=== PATIENT | male | born 1965 | race African-American/Black ===

== ENCOUNTER 2020-06-12 18:12 | Inpatient (IN) | payer OTHER ==
--- NOTE | 2020-06-12 22:05 | HP ---
CIWA Score Nausea/Vomitin-No Nausea/No Vomiting Muscle Tremors: 4-Moderate,w/Arms Extend Anxiety: 4-Mod. Anxious/Guarded Agitation: 1-Slight > Activity Paroxysmal Sweats: 4-Forehead w/Sweat Beads Orientation: 1-Uncertain about Date Tacttile Disturbances: 3-Moderate Itch/Numb/Burn (ITCH) Auditory Disturbances: 0-None Visual Disturbances: 0-None Headache: 0-None Present CIWA-Ar Total Score: 17 - Admission Criteria [facility]ASAS Guidelines: Admission for Medically Managed Detox: Requires at least one of the followin. CIWA greater than 12 2. Seizures within the past 24 hours 3. Delirium tremens within the past 24 hours 4. Hallucinations within the past 24 hours 5. Acute intervention needed for co occurring medical disorder 6. Acute intervention needed for co occurring psychiatric disorder 7. Severe withdrawal that cannot be handled at a lower level of care (continued vomiting, continued diarrhea, abnormal vital signs) requiring intravenous medication and/or fluids 8. Patient presents the following: CIWA greater than 12 Admission Criteria Met: Admission criteria met Admitting History and Physical - Smoking History Smoking history: Current every day smoker Have you smoked in the past 12 months: Yes Aproximately how many cigarettes per day: 10 - Alcohol/Substance Use Hx Alcohol Use: Yes Admission ROS BHS - HPI Chief Complaint: C/O ALCOHOL WITHDRAWAL SX'S. SEEKING DETOX Allergies/Adverse Reactions: Allergies Allergy/AdvReac Type Severity Reaction Status Date / Time fish derived Allergy Severe Swelling Verified 05/27/18 13:53 KAREN Inhibitors Allergy Intermediate Swelling Verified 05/27/18 13:25 History of Present Illness: HERE FOR ALCOHOL WITHDRAWAL SX'S. CLIENT IS REFERRED BY OUT REACH. KNOWN TO FACILITY LAST HERE 2017. PRESENTS TODAY WITH C/O WITHDRAWAL SX'S. CLIENT REPORTS DAILY ALCOHOL ABUSE. LAST USE THIS MORNING. REPORTS + EYE HISTOPATH TECH, + BLACKOUTS, DENIES SEIZURES. HE ALSO ABUSES COCAINE, DENIES IVDU, HX/O DRUG OVERDOSE. DENIES ANY SIGNIFICANT PERIOD OF CLEAN TIME IN THE PAST YEAR. LONGEST CLEAN TIME 1 YEAR IN . LIVES ALONE, UNEMPLOYED, DENIES LEGALS. Exam Limitations: Physical Impairment (R EYE BLINDNESS) - Ebola screening Have you traveled outside of the country in the last 21 days: No Have you had contact with anyone from an Ebola affected area: No Have you been sick,other than usual withdrawal symptoms: No Do you have a fever: No - Review of Systems Constitutional: Chills, Loss of Appetite, Malaise, Night Sweats, Changes in sleep EENT: reports: Other (VISION LOSS TO RIGHT EYE) Respiratory: reports: Shortness of Breath (INTERMITTENT 2/2 HX/O ASTHMA) Cardiac: reports: No Symptoms Reported GI: reports: Poor Appetite, Poor Fluid Intake Musculoskeletal: reports: No Symptoms Reported Integumentary: reports: No Symptoms Reported Neuro: reports: No Symptoms reported Endocrine: reports: No Symptoms Reported Hematology: reports: No Symptoms Reported Psychiatric: reports: Orientated x3, Anxious Other Systems: Reviewed and Negative Patient History - Patient Medical History Hx Anemia: No Hx Asthma: Yes Hx Chronic Obstructive Pulmonary Disease (COPD): No Hx Cancer: No Hx Cardiac Disorders: No Hx Congestive Heart Failure: No Hx Hypertension: Yes (LAST TOK MEDS A WEEK AGO. DOES NOT RECALL NAME OF MED) Hx Hypercholesterolemia: No Hx Pacemaker: No HX Cerebrovascular Accident: No Hx Seizures: No Hx Dementia: No Hx Diabetes: No Hx Gastrointestinal Disorders: No Hx Liver Disease: No Hx Genitourinary Disorders: No Hx Sexually Transmitted Disorders: No Hx Renal Disease (ESRD): No Hx Thyroid Disease: No Hx Human Immunodeficiency Virus (HIV): Yes (SINCE 2008, No ANTIRETROVIRAL MEDS) Hx Hepatitis C: No Hx Depression: No Hx Suicide Attempt: No Hx Schizophrenia: No Other Medical History: legally blind in the right eye - Patient Surgical History Past Surgical History: Yes Hx Neurologic Surgery: No Hx Cataract Extraction: No Hx Cardiac Surgery: No Hx Lung Surgery: No Hx Breast Surgery: No Hx Breast Biopsy: No Hx Abdominal Surgery: No Hx Appendectomy: No Hx Cholecystectomy: No Hx Genitourinary Surgery: No Hx Section: No Hx Orthopedic Surgery: No Other Surgical History: right eye FOR GLAUCOMA Anesthesia Reaction: Yes - PPD History Previous Implant?: Yes Documented Results: Negative w/proof Implanted On Prior R Admission?: Yes Date: 05/29/18 Results: 0 mm PPD to be Administered?: Yes - Smoking Cessation Smoking history: Current every day smoker Have you smoked in the past 12 months: Yes Aproximately how many cigarettes per day: 20 Cigars Per Day: 0 Hx Chewing Tobacco Use: No Initiated information on smoking cessation: Yes 'Breaking Loose' booklet given: 06/12/20 - Substance & Tx. History Hx Alcohol Use: Yes Hx Substance Use: Yes Substance Use Type: Alcohol, Cocaine Hx Substance Use Treatment: Yes ([facility]) - Substances abused Alcohol Other (specify): VODKA Substance route: Oral Frequency: Daily Amount used: 1 QUART- 1/2 GALLON Age of first use: 15 Date of last use: 06/12/20 Cocaine Substance route: Smoking Frequency: 3-6 times per week Amount used: 100 DOLLARS Age of first use: 24 Date of last use: 06/12/20 Admission Physical Exam [facility] - Physical General Appearance: Yes: Moderate Distress, Tremorous, Anxious HEENTM: Yes: EOMI, Normocephalic, Normal Voice, EDMUNDO (left eye), Pharynx Normal, Other (TOP DENTURES) Respiratory: Yes: Chest Non-Tender, Lungs Clear, Normal Breath Sounds, No Respiratory Distress, No Accessory Muscle Use Neck: Yes: No masses,lesions,Nodules, Supple, Trachea in good position Cardiology: Yes: Regular Rhythm, Regular Rate, S1, S2 Abdominal: Yes: Non Tender, Soft, Increased Bowel Sounds Genitourinary: Yes: Within Normal Limits Back: Yes: Normal Inspection Musculoskeletal: Yes: full range of Motion, Gait Steady Extremities: Yes: Normal Capillary Refill, Normal Range of Motion, Non-Tender, Tremors Neurological: Yes: Fully Oriented, Alert, Motor Strength 5/5, Depressed Affect Integumentary: Yes: Dry, Warm Lymphatic: Yes: Within Normal Limits - Diagnostic (1) Alcohol dependence with uncomplicated withdrawal Current Visit: Yes Status: Acute (2) Cocaine dependence Current Visit: Yes Status: Acute (3) Drug-induced mood disorder Current Visit: Yes Status: Suspected (4) Nicotine dependence Current Visit: Yes Status: Chronic Qualifiers: Nicotine product type: cigarettes Substance use status: in withdrawal Qualified Code(s): F17.213 - Nicotine dependence, cigarettes, with withdrawal (5) Asthma Current Visit: Yes Status: Chronic Qualifiers: Asthma severity: unspecified severity Asthma persistence: unspecified Asthma complication type: unspecified Qualified Code(s): J45.909 - Unspecified asthma, uncomplicated (6) HTN (hypertension) Current Visit: Yes Status: Chronic Qualifiers: Hypertension type: essential hypertension Qualified Code(s): I10 - Essentia l (primary) hypertension (7) Human immunodeficiency virus infection Current Visit: Yes Status: Chronic (8) Legally blind in right eye, as defined in [place] Current Visit: Yes Status: Chronic (9) Risk for falls Current Visit: Yes Status: Acute Cleared for Admission S - Detox or Rehab [facility] Level of Care: Medically Managed Detox Regimen/Protocol: Librium Claeared for Rehab Admission: No Breathalyzer - Breathalyzer Breathalyzer: 0.50 Urine Drug Screen - Test Device Lot number: [id number] Expiration date: 01/15/22 - Control Is test valid?: Yes - Results Drug screen NEGATIVE: No Urine drug screen results: [facility]-Cocaine Inpatient Rehab Admission - Rehab Decision to Admit Inpatient rehab admission?: No
[2020-06-12] MEDS ORDERED: guaiFENesin 200 MG/10 ML 10 ML UNIT-DOSE CUPS PO PRN (22:14)
[2020-06-12] MEDS ORDERED: MENTHOL/PHENOL 1 EACH UD MM PRN (22:14)
[2020-06-12] MEDS ORDERED: P-EPHED 60MG/TRIPROLIDI 2.5MG TABLET PO PRN (22:14)
[2020-06-12] MEDS ORDERED: ONDANSETRON *ODT* 4 MG TABLET SL PRN (22:14)
[2020-06-12] MEDS ORDERED: MAGNESIUM HYDROX 2400MG/30ML ORAL SUSPENSION 30 ML CUP PO PRN (22:14)
[2020-06-12] MEDS ORDERED: MAG HYDROX/AL HYDROX/SIMETH 30 ML UNIT-DOSE CUP PO PRN (22:14)
[2020-06-12] MEDS ORDERED: MAGNESIUM CITRATE 300 ML BOTTLE PO PRN (22:14)
[2020-06-12] MEDS ORDERED: ACETAMINOPHEN 325 MG TABLET (FP) PO PRN ×2 (22:14)
[2020-06-12] MEDS ORDERED: NICOTINE POLACRILEX 2 MG GUM BUC PRN (22:14)
[2020-06-12] MEDS ORDERED: DICYCLOMINE HCL 10 MG CAPSULE PO PRN (22:14)
[2020-06-12] MEDS ORDERED: BISMUTH SUBSALICYLATE 524 MG/30 ML UD PO PRN (22:14)
[2020-06-12] MEDS ORDERED: chlordiazePOXIDE HCL 25 MG CAPSULE PO PRN (22:14)
[2020-06-12] MEDS ORDERED: IBUPROFEN 400 MG TABLET (FP) PO PRN (22:14)
[2020-06-13] MEDS: chlordiazePOXIDE HCL 25 MG CAPSULE PO SCH ×5 (00:10→22:12)
[2020-06-13] MEDS: hydrOXYzine PAMOATE 25 MG CAPSULE (FP) PO PRN (00:10)
[2020-06-13] MEDS: ALBUTEROL SO4 HFA INHALER IH PRN ×3 (00:13→22:55)
[2020-06-13] MEDS: NICOTINE 21 MG/24 HOURS TOPICAL PATCH TD SCH (11:52)
[2020-06-13] MEDS: PRENATAL VITAMINS W/ FOLIC ACID TABLET (FP) PO SCH (11:53)
[2020-06-13] MEDS: NIFEdipine E.R. 30 MG TABLET PO SCH (11:53)
[2020-06-13 12:27] LABS: HEMATOCRIT 42.1 % (35.4-49); MCH 31.4 pg (25.7-33.7); MCHC 33.3 g/dl (32.0-35.9); MEAN CELL VOLUME 94.3 fl (80-96); MEAN PLT VOLUME 9.9 fl (7.5-11.1); PLATELET COUNT 174 K/MM3 (134-434); RBC 4.47 M/mm3 (4.00-5.60); RDW 13.3 % (11.9-15.9); WHITE BLOOD COUNT 5.4 K/mm3 (4.0-10.0)
[2020-06-13 12:45] LABS: ALBUMIN 3.6 g/dl (3.4-5.0); BILIRUBIN,TOTAL 0.9 mg/dL (0.2-1); BLOOD UREA NITROGEN 17.5 mg/dL (7-18); CREATININE 1.6 mg/dL (0.55-1.3); POTASSIUM 3.5 mmol/L (3.5-5.1); TOT PROT 8.2 g/dl (6.4-8.2)
[2020-06-13] MEDS: METHOCARBAMOL 500 MG TABLET PO PRN (13:17)
--- NOTE | 2020-06-13 13:21 | CONSULT ---
[facility] Psychiatric Consult - Data Date of interview: 06/13/20 Admission source: Self-referred Identifying data: Mr Blum is a 55 years old Black male, father of 3 children, unemployed receiving SSI, living alone seeking detox treatment for alcohol and cocaine Substance Abuse History: Reports history of alcohol and cocaine use. Refer to addiction counselor's summary for further information Medical History: Significant for bronchial asthma, hypertension, HIV since 2008 and eye surgery for glaucoma right eye(legally ayana right eye). Smokes 10-20 cigarettes daily Psychiatric History: Patient was approached by the nursing station for interview. Told bond writer:" I'm not here for psych. I'm here for the drinking"
--- NOTE | 2020-06-13 14:42 | PN ---
S CIWA - CIWA Score Nausea/Vomitin-No Nausea/No Vomiting Muscle Tremors: 3 Anxiety: 3 Agitation: 3 Paroxysmal Sweats: 2 Orientation: 0-Oriented Tacttile Disturbances: 0-None Auditory Disturbances: 0-None Visual Disturbances: 0-None Headache: 0-None Present CIWA-Ar Total Score: 11 S Progress Note (SOAP) Subjective: sweats shakes tired interrupted sleep body aches Objective: 06/13/20 14:41 Vital Signs Temperature 97.1 F L 06/13/20 13:08 Pulse Rate 76 06/13/20 13:08 Respiratory Rate 19 06/13/20 13:08 Blood Pressure 151/101 H 06/13/20 13:08 O2 Sat by Pulse Oximetry (%) 100 06/13/20 13:08 Laboratory Tests 06/13/20 06/13/20 06/13/20 08:40 08:40 08:40 WBC 5.4 RBC 4.47 Hgb 14.0 Hct 42.1 MCV 94.3 MCH 31.4 MCHC 33.3 RDW 13.3 Plt Count 174 MPV 9.9 Sodium 142 Potassium 3.5 Chloride 106 Carbon Dioxide 30 Anion Gap 7 L BUN 17.5 Creatinine 1.6 H Est GFR (CKD-EPI)AfAm 56.17 Est GFR (CKD-EPI)NonAf 48.46 Random Glucose 118 H Calcium 9.0 Total Bilirubin 0.9 AST 24 ALT 24 Alkaline Phosphatase 72 Total Protein 8.2 Albumin 3.6 Syphilis Serology Non-reactive BP for this afternoon is 151/101; clonidine 0.1mg x one dose ordered repeat BP aaox3 lying in bed no acute distress Assessment: 06/13/20 14:43 withdrawals Plan: continue detox
[2020-06-13] MEDS ORDERED: cloNIDine HCL 0.1 MG TABLET PO ONE (15:00)
[2020-06-13] MEDS: MELATONIN 5 MG TABLETS PO SCH (22:12)
[2020-06-13] MEDS: THIAMINE HCL 100 MG TABLET (FP) PO SCH (22:12)
[2020-06-14] MEDS: ALBUTEROL SO4 HFA INHALER IH PRN ×2 (05:28→22:36)
[2020-06-14] MEDS: chlordiazePOXIDE HCL 25 MG CAPSULE PO SCH ×4 (05:28→22:35)
[2020-06-14] MEDS: NIFEdipine E.R. 30 MG TABLET PO SCH (10:41)
[2020-06-14] MEDS: PRENATAL VITAMINS W/ FOLIC ACID TABLET (FP) PO SCH (10:41)
[2020-06-14] MEDS: NICOTINE 21 MG/24 HOURS TOPICAL PATCH TD SCH (10:42)
--- NOTE | 2020-06-14 13:44 | PN ---
[facility] CIWA - CIWA Score Nausea/Vomitin-No Nausea/No Vomiting Muscle Tremors: 2 Anxiety: 3 Agitation: 2 Paroxysmal Sweats: 3 Orientation: 0-Oriented Tacttile Disturbances: 0-None Auditory Disturbances: 0-None Visual Disturbances: 0-None Headache: 0-None Present CIWA-Ar Total Score: 10 S Progress Note (SOAP) Subjective: Complaints of anxiety, tremors, sweats and irritability. Objective: 06/14/20 13:42 Vital Signs 06/14/20 09:36 Temperature 98.0 F Pulse Rate 75 Respiratory 16 Rate Blood Pressure 127/79 O2 Sat by Pulse 93 L Oximetry (%) Laboratory Last Values WBC 5.4 K/mm3 (4.0-10.0) 06/13/20 08:40 RBC 4.47 M/mm3 (4.00-5.60) 06/13/20 08:40 Hgb 14.0 GM/dL (11.7-16.9) 06/13/20 08:40 Hct 42.1 % (35.4-49) 06/13/20 08:40 MCV 94.3 fl (80-96) 06/13/20 08:40 MCH 31.4 pg (25.7-33.7) 06/13/20 08:40 MCHC 33.3 g/dl (32.0-35.9) 06/13/20 08:40 RDW 13.3 % (11.9-15.9) 06/13/20 08:40 Plt Count 174 K/MM3 (134-434) 06/13/20 08:40 MPV 9.9 fl (7.5-11.1) 06/13/20 08:40 Sodium 142 mmol/L (136-145) 06/13/20 08:40 Potassium 3.5 mmol/L (3.5-5.1) 06/13/20 08:40 Chloride 106 mmol/L (98-107) 06/13/20 08:40 Carbon Dioxide 30 mmol/L (21-32) 06/13/20 08:40 Anion Gap 7 MMOL/L (8-16) L 06/13/20 08:40 BUN 17.5 mg/dL (7-18) 06/13/20 08:40 Creatinine 1.6 mg/dL (0.55-1.3) H 06/13/20 08:40 Est GFR (CKD-EPI)AfAm 56.17 06/13/20 08:40 Est GFR (CKD-EPI)NonAf 48.46 06/13/20 08:40 Random Glucose 118 mg/dL (74-106) H 06/13/20 08:40 Calcium 9.0 mg/dL (8.5-10.1) 06/13/20 08:40 Total Bilirubin 0.9 mg/dL (0.2-1) 06/13/20 08:40 AST 24 U/L (15-37) 06/13/20 08:40 ALT 24 U/L (13-61) 06/13/20 08:40 Alkaline Phosphatase 72 U/L (45-117) 06/13/20 08:40 Total Protein 8.2 g/dl (6.4-8.2) 06/13/20 08:40 Albumin 3.6 g/dl (3.4-5.0) 06/13/20 08:40 Syphilis Serology Non-reactive (NONREACTIVE) 06/13/20 08:40 Labs noted with elevated Creatinine Assessment: 06/14/20 13:43 Alert and oriented x 3, in no acute respiratory distress. Full ROM, ambulating in unit without assistance. Skin warm to touch without any lesions. Withdrawal symptoms. Elevated Creatinine. Plan: Continue detox protocol. Repeat BMP for elevated creatinine.
--- NOTE | 2020-06-14 15:00 | EKG ---
Test Reason : Blood Pressure : / mmHG Vent. Rate : 073 BPM Atrial Rate : 073 BPM P-R Int : 156 ms QRS Dur : 080 ms QT Int : 396 ms P-R-T Axes : 064 -18 010 degrees QTc Int : 436 ms NORMAL SINUS RHYTHM NORMAL ECG WHEN COMPARED WITH ECG OF 27-MAY-2018 15:04, NONSPECIFIC T WAVE ABNORMALITY NO LONGER EVIDENT IN LATERAL LEADS Confirmed by Jaydon Morales ([id number]) on 06/14/2020 3:00:32 PM Referred By: ANTOLIN ERNST Confirmed By:Jaydon Morales
[2020-06-14] MEDS: METHOCARBAMOL 500 MG TABLET PO PRN (15:10)
[2020-06-14] MEDS: THIAMINE HCL 100 MG TABLET (FP) PO SCH (22:35)
[2020-06-14] MEDS: MELATONIN 5 MG TABLETS PO SCH (22:35)
[2020-06-15] MEDS ORDERED: chlordiazePOXIDE HCL 10 MG CAPSULE PO PRN
[2020-06-15] MEDS: chlordiazePOXIDE HCL 10 MG CAPSULE PO SCH ×4 (06:01→22:18)
[2020-06-15] MEDS: ALBUTEROL SO4 HFA INHALER IH PRN ×2 (06:04→17:19)
[2020-06-15] MEDS: PRENATAL VITAMINS W/ FOLIC ACID TABLET (FP) PO SCH (09:40)
[2020-06-15] MEDS: NIFEdipine E.R. 30 MG TABLET PO SCH (09:40)
[2020-06-15] MEDS: NICOTINE 21 MG/24 HOURS TOPICAL PATCH TD SCH (10:13)
[2020-06-15 11:12] LABS: BLOOD UREA NITROGEN 13.7 mg/dL (7-18); CALCIUM 8.5 mg/dL (8.5-10.1); CREATININE 1.3 mg/dL (0.55-1.3)
--- NOTE | 2020-06-15 12:43 | PN ---
[facility] CIWA - CIWA Score Nausea/Vomitin-No Nausea/No Vomiting Muscle Tremors: 1-None Visible, but [place] Anxiety: 2 Agitation: 2 Paroxysmal Sweats: 3 Orientation: 0-Oriented Tacttile Disturbances: 0-None Auditory Disturbances: 0-None Visual Disturbances: 0-None Headache: 0-None Present CIWA-Ar Total Score: 8 S Progress Note (SOAP) Subjective: C/O tremors, anxiety, agitation and sweats. Objective: 06/15/20 12:42 Vital Signs 06/15/20 06/15/20 06/15/20 06:00 07:37 09:14 Temperature 97.1 F L 96.8 F L Pulse Rate 66 69 73 Respiratory 20 20 Rate Blood Pressure 151/112 H 143/81 152/91 O2 Sat by Pulse 95 95 Oximetry (%) Laboratory Last Values WBC 5.4 K/mm3 (4.0-10.0) 06/13/20 08:40 RBC 4.47 M/mm3 (4.00-5.60) 06/13/20 08:40 Hgb 14.0 GM/dL (11.7-16.9) 06/13/20 08:40 Hct 42.1 % (35.4-49) 06/13/20 08:40 MCV 94.3 fl (80-96) 06/13/20 08:40 MCH 31.4 pg (25.7-33.7) 06/13/20 08:40 MCHC 33.3 g/dl (32.0-35.9) 06/13/20 08:40 RDW 13.3 % (11.9-15.9) 06/13/20 08:40 Plt Count 174 K/MM3 (134-434) 06/13/20 08:40 MPV 9.9 fl (7.5-11.1) 06/13/20 08:40 Sodium 140 mmol/L (136-145) 06/15/20 07:30 Potassium 4.0 mmol/L (3.5-5.1) 06/15/20 07:30 Chloride 106 mmol/L (98-107) 06/15/20 07:30 Carbon Dioxide 31 mmol/L (21-32) 06/15/20 07:30 Anion Gap 3 MMOL/L (8-16) L 06/15/20 07:30 BUN 13.7 mg/dL (7-18) 06/15/20 07:30 Creatinine 1.3 mg/dL (0.55-1.3) 06/15/20 07:30 Est GFR (CKD-EPI)AfAm 72.20 06/15/20 07:30 Est GFR (CKD-EPI)NonAf 62.29 06/15/20 07:30 Random Glucose 83 mg/dL (74-106) 06/15/20 07:30 Calcium 8.5 mg/dL (8.5-10.1) 06/15/20 07:30 Total Bilirubin 0.9 mg/dL (0.2-1) 06/13/20 08:40 AST 24 U/L (15-37) 06/13/20 08:40 ALT 24 U/L (13-61) 06/13/20 08:40 Alkaline Phosphatase 72 U/L (45-117) 06/13/20 08:40 Total Protein 8.2 g/dl (6.4-8.2) 06/13/20 08:40 Albumin 3.6 g/dl (3.4-5.0) 06/13/20 08:40 Syphilis Serology Non-reactive (NONREACTIVE) 06/13/20 08:40 COVID-19 ([facility]) Not detected (Not Detected) 06/12/20 11:00 Labs noted. Assessment: 06/15/20 12:42 Alert and oriented x 3, in no acute respiratory distress. Full ROM, ambulatory in unit without any assistance. Skin warm to touch without any lesions. Withdrawal symptoms. Plan: Continue detox protocol.
[2020-06-15] MEDS: BUDESONIDE/FORMETEROL FUMARATE 160/4.5 mcg INHALER IH SCH (22:18)
[2020-06-15] MEDS: MELATONIN 5 MG TABLETS PO SCH (22:18)
[2020-06-15] MEDS: THIAMINE HCL 100 MG TABLET (FP) PO SCH (22:18)
[2020-06-16] MEDS: chlordiazePOXIDE HCL 10 MG CAPSULE PO SCH ×2 (05:46→17:54)
--- NOTE | 2020-06-16 09:50 | PN ---
[facility] CIWA - CIWA Score Nausea/Vomitin-No Nausea/No Vomiting Muscle Tremors: None Anxiety: 2 Agitation: 0-Normal Activity Paroxysmal Sweats: 2 Orientation: 0-Oriented Tacttile Disturbances: 0-None Auditory Disturbances: 0-None Visual Disturbances: 0-None Headache: 0-None Present CIWA-Ar Total Score: 4 BHS Progress Note (SOAP) Subjective: c/o mild withdrawal symptoms. Objective: 06/16/20 09:48 Vital Signs 06/16/20 06/16/20 05:49 08:15 Temperature 97.3 F L 97.5 F L Pulse Rate 84 75 Respiratory 18 16 Rate Blood Pressure 134/83 141/80 O2 Sat by Pulse 97 Oximetry (%) Laboratory Last Values WBC 5.4 K/mm3 (4.0-10.0) 06/13/20 08:40 RBC 4.47 M/mm3 (4.00-5.60) 06/13/20 08:40 Hgb 14.0 GM/dL (11.7-16.9) 06/13/20 08:40 Hct 42.1 % (35.4-49) 06/13/20 08:40 MCV 94.3 fl (80-96) 06/13/20 08:40 MCH 31.4 pg (25.7-33.7) 06/13/20 08:40 MCHC 33.3 g/dl (32.0-35.9) 06/13/20 08:40 RDW 13.3 % (11.9-15.9) 06/13/20 08:40 Plt Count 174 K/MM3 (134-434) 06/13/20 08:40 MPV 9.9 fl (7.5-11.1) 06/13/20 08:40 Sodium 140 mmol/L (136-145) 06/15/20 07:30 Potassium 4.0 mmol/L (3.5-5.1) 06/15/20 07:30 Chloride 106 mmol/L (98-107) 06/15/20 07:30 Carbon Dioxide 31 mmol/L (21-32) 06/15/20 07:30 Anion Gap 3 MMOL/L (8-16) L 06/15/20 07:30 BUN 13.7 mg/dL (7-18) 09/06/20 07:30 Creatinine 1.3 mg/dL (0.55-1.3) 06/15/20 07:30 Est GFR (CKD-EPI)AfAm 72.20 06/15/20 07:30 Est GFR (CKD-EPI)NonAf 62.29 06/15/20 07:30 Random Glucose 83 mg/dL (74-106) 06/15/20 07:30 Calcium 8.5 mg/dL (8.5-10.1) 06/15/20 07:30 Total Bilirubin 0.9 mg/dL (0.2-1) 06/13/20 08:40 AST 24 U/L (15-37) 06/13/20 08:40 ALT 24 U/L (13-61) 06/13/20 08:40 Alkaline Phosphatase 72 U/L (45-117) 06/13/20 08:40 Total Protein 8.2 g/dl (6.4-8.2) 06/13/20 08:40 Albumin 3.6 g/dl (3.4-5.0) 06/13/20 08:40 Syphilis Serology Non-reactive (NONREACTIVE) 06/13/20 08:40 COVID-19 ([facility]) Not detected (Not Detected) 06/12/20 11:00 Labs noted. Assessment: 06/16/20 09:48 AOX3, in no acute respiratory distress. Full ROM, ambulating in the unit. Mild Withdrawal symptoms. For d/c tomorrow. Plan: continue detox. D/C in AM.
[2020-06-16] MEDS: PRENATAL VITAMINS W/ FOLIC ACID TABLET (FP) PO SCH (11:21)
[2020-06-16] MEDS: NICOTINE 21 MG/24 HOURS TOPICAL PATCH TD SCH (11:21)
[2020-06-16] MEDS: NIFEdipine E.R. 30 MG TABLET PO SCH (11:21)
[2020-06-16] MEDS: BUDESONIDE/FORMETEROL FUMARATE 160/4.5 mcg INHALER IH SCH ×2 (11:23→21:39)
[2020-06-16] MEDS: ALBUTEROL SO4 HFA INHALER IH PRN (11:25)
[2020-06-16] MEDS: METHOCARBAMOL 500 MG TABLET PO PRN (21:36)
[2020-06-16] MEDS: THIAMINE HCL 100 MG TABLET (FP) PO SCH (21:37)
[2020-06-16] MEDS: hydrOXYzine PAMOATE 25 MG CAPSULE (FP) PO PRN (21:37)
[2020-06-16] MEDS: MELATONIN 5 MG TABLETS PO SCH (21:37)
[2020-06-17] MEDS ORDERED: chlordiazePOXIDE HCL 10 MG CAPSULE PO ONE (05:00)
[2020-06-17 10:00] VITALS: BP 149/109; PULSE 137; TEMP 96.9
--- NOTE | 2020-06-17 11:08 | DS ---
[facility] Detox Discharge Summary Admission Date: 06/12/20 Discharge Date: 06/17/20 - History Present History: Alcohol Dependence, Cocaine Dependence - Physical Exam Results Vital Signs: Vital Signs Temperature 96.9 F L 06/17/20 08:54 Pulse Rate 137 H 06/17/20 08:54 Respiratory Rate 84 H 06/17/20 08:54 Blood Pressure 149/109 H 06/17/20 08:54 O2 Sat by Pulse Oximetry (%) 96 06/17/20 08:54 Pertinent Admission Physical Exam Findings: Vital Signs Temperature 96.9 F L 06/17/20 08:54 Pulse Rate 137 H 06/17/20 08:54 Respiratory Rate 84 H 06/17/20 08:54 Blood Pressure 149/109 H 06/17/20 08:54 O2 Sat by Pulse Oximetry (%) 96 06/17/20 08:54 Laboratory Tests 06/12/20 06/13/20 06/13/20 11:00 08:40 08:40 WBC 5.4 RBC 4.47 Hgb 14.0 Hct 42.1 MCV 94.3 MCH 31.4 MCHC 33.3 RDW 13.3 Plt Count 174 MPV 9.9 Sodium Potassium Chloride Carbon Dioxide Anion Gap BUN Creatinine Est GFR (CKD-EPI)AfAm Est GFR (CKD-EPI)NonAf Random Glucose Calcium Total Bilirubin AST ALT Alkaline Phosphatase Total Protein Albumin Syphilis Serology Non-reactive COVID-19 ([facility]) Not detected 06/13/20 06/15/20 08:40 07:30 WBC RBC Hgb Hct MCV MCH MCHC RDW Plt Count MPV Sodium 142 140 Potassium 3.5 4.0 Chloride 106 106 Carbon Dioxide 30 31 Anion Gap 7 L 3 L BUN 17.5 13.7 Creatinine 1.6 H 1.3 Est GFR (CKD-EPI)AfAm 56.17 72.20 Est GFR (CKD-EPI)NonAf 48.46 62.29 Random Glucose 118 H 83 Calcium 9.0 8.5 Total Bilirubin 0.9 AST 24 ALT 24 Alkaline Phosphatase 72 Total Protein 8.2 Albumin 3.6 Syphilis Serology COVID-19 ([facility]) aaox3 ambulating no acute distress lungs CTA - Treatment Hospital Course: Detox Protocol Followed, Detoxed Safely, Responded well, Discharged Condition Good, Rehab Referral Accepted - Medication Discharge Medications: Ambulatory Orders Nifedipine ER [Procardia XL -] 30 mg PO DAILY 05/27/18 Quetiapine Fumarate [Seroquel] 100 tab PO HS 05/27/18 - Diagnosis (1) Acute prerenal azotemia Status: Acute (2) Alcohol dependence with uncomplicated withdrawal Status: Chronic (3) Cocaine dependence Status: Chronic (4) Risk for falls Status: Acute (5) Weight decreased Status: Acute (6) Asthma Status: Chronic Qualifiers: Asthma severity: unspecified severity Asthma persistence: unspecified Asthma complication type: unspecified Qualified Code(s): J45.909 - Unspecified asthma, uncomplicated (7) HTN (hypertension) Status: Chronic Qualifiers: Hypertension type: essential hypertension Qualified Code(s): I10 - Essential (primary) hypertension (8) Human immunodeficiency virus infection Status: Chronic (9) Legally blind in right eye, as defined in [place] Status: Chronic (10) Nicotine dependence Status: Chronic Qualifiers: Nicotine product type: cigarettes Substance use status: in withdrawal Qualified Code(s): F17.213 - Nicotine dependence, cigarettes, with withdrawal (11) Drug-induced mood disorder Status: Suspected - AMA Did Patient Leave Against Medical Advice: No
== END 2020-06-17 10:23 | disposition home or self-care (01) | DRG 774 ==
LOC: YASAS 18:12 → Y6N 22:03
PROVIDERS: ADMIT Allergy & Immunology; ATTEND Allergy & Immunology
PROC: HZ2ZZZZ Detoxification Services for Substance Abuse Treatment (ICD-10-PCS; principal; 2020-06-12)
DX: F10.230 Alcohol dependence with withdrawal, uncomplicated (principal); F14.20 Cocaine dependence, uncomplicated; F17.210 Nicotine dependence, cigarettes, uncomplicated; F19.24 Other psychoactive substance dependence with psychoactive substance-induced mood disorder; Z21 Asymptomatic human immunodeficiency virus [HIV] infection status; I10 Essential (primary) hypertension; J45.909 Unspecified asthma, uncomplicated; H54.61 Unqualified visual loss, right eye, normal vision left eye; R79.89 Other specified abnormal findings of blood chemistry; R63.4 Abnormal weight loss; Z88.8 Allergy status to other drugs, medicaments and biological substances; Z91.013 Allergy to seafood
CPT/HCPCS: 36415; 80048; 80053; 85027; 86780; 93005; 93010; J0735; U0003

== ENCOUNTER 2020-07-17 14:05 | Inpatient (IN) | payer OTHER ==
--- OUTSIDE RECORDS SUMMARY | 2020-07-17 15:19 | XMS ---
:1965 Author Organization [facility] Support Name Relationship Address Phone UE Unavailable Unavailable Unavailable JULIÁN KENYON [address] [place] [address] JULIÁN Kenyon [address] [phone] [place] [address] Re-disclosure Warning The records that you are about to access may contain information from federally- assisted alcohol or drug abuse programs. If such information is present, then the following federally mandated warning applies: This information has been disclosed to you from records protected by federal confidentiality rules (42 CFR part 2). The federal rules prohibit you from making any further disclosure of this information unless further disclosure is expressly permitted by the written consent of the person to whom it pertains or as otherwise permitted by 42 CFR part 2. A general authorization for the release of medical or other information is NOT sufficient for this purpose. The Federal rules restrict any use of the information to criminally investigate or prosecute any alcohol or drug abuse patient.The records that you are about to access may contain highly sensitive health information, the redisclosure of which is protected by Article 27-F of the [facility] Public Health law. If you continue you may haveaccess to information: Regarding HIV / AIDS; Provided by facilities licensed or operated by the [facility] Office of Mental Health; or Provided by the [facility] Office for People With Developmental Disabilities. If such information is present, then the following [facility] mandated warning applies: This information has been disclosed to you from confidential records which are protected by state law. State law prohibits you from making any further disclosure of this information without the specific written consent of the person to whom it pertains, or as otherwise permitted by law. Any unauthorized further disclosure in violation of state law may result in a fine or senior care sentence or both. A general authorization for the release of medical or other information is NOT sufficient authorization for further disclosure. Encounters Encounter Providers Location Date Indications Data Source(s ) Outpatient [facility] 08/17/2019 eCW3 ([facility] 12:00:00 AM [facility] - [facility]) 08/17/2019 12:00:00 AM EST Outpatient [facility] 08/14/2019 eCW3 ([facility] 12:00:00 [facility] - [facility]) 08/14/2019 12:00:00 AM EST (CM-F/U) Case [facility] 08/06/2019 eCW3 ([facility] 12[facility]00:00 [facility] - [facility]) 08/06/2019 12:00:00 AM EDT (CM-F/U) Case [facility] 07/11/2019 eCW3 ([facility] 12:00:00 [facility] - Care) 07/11/2019 12:00:00 AM EDT Outpatient [facility] 07/05/2019 eCW3 ([facility] 12:00:00 AM [facility] - [facility]) 07/05/2019 12:00:00 AM EDT (CM-F/U) Case [facility] 07/05/2019 eCW3 ([facility] 12:00:00 [facility] - Care) 07/05/2019 12:00:00 AM EDT Outpatient [facility] 07/03/2019 eCW3 ([facility] 12:00:00 AM [facility] - [facility]) 07/03/2019 12:00:00 AM EDT (CM-F/U) Case [facility] 07/03/2019 eCW3 ([facility] 12:00:00 [facility] - Care) 07/03/2019 12:00:00 AM EDT Outpatient [facility] 06/05/2019 eCW3 ([facility] 12:00:00 AM [facility] - [facility]) 06/05/2019 12:00:00 AM EDT (CM-F/U) Case [facility] 05/31/2019 eCW3 ([facility] 12:00:00 [facility] - [facility]) 05/31/2019 12:00:00 AM EDT (CM-F/U) Case [facility] 05/22/2019 eCW3 ([facility] A28 12:00:00 AM [facility] EDT [facility]) 05/22/2019 12:00:00 AM EDT (CM-F/U) Case [facility] 05/22/2019 eCW3 ([facility] A28 12:00:00 AM [facility] EDT [facility]) 05/22/2019 12:00:00 AM EDT Medications Medication Brand Start Product Dose Route Administrative Pharmacy [facility] Indications Reaction Description Data Name Date Form Instructions Instructions Source(s) Famotidine Famoti .0 active Famotidi ne eCW3 20 MG Oral dine 2020 {tabl 20 MG ([facility] Tablet 20 MG 12:00: et[facility]at [facility] 00 AM _[facility] EDT ime_a Care) s_nee ded} Famotidine Famoti .0 active Famotidi ne eCW3 20 MG Oral dine 2020 {tabl 20 MG ([facility] Tablet 20 MG 12:00: [facility] s_nee ded} Famotidine Famoti .0 active Famotidi ne eCW3 20 MG Oral dine 2020 {tabl 20 MG ([facility] Tablet 20 MG 12:00: [facility] Care) s_nee ded} Famotidine Famoti .0 active Famotidi ne eCW3 20 MG Oral dine 2020 {tabl 20 MG ([facility] Tablet 20 MG 12:00: [facility]at [facility] AM [facility]) s_nee ded} Famotidine Famoti .0 active Famotidi ne eCW3 20 MG Oral dine 2020 {tabl 20 MG ([facility] Tablet 20 MG 12:00: [facility]at [facility] 00 AM [facility] Care) s_nee ded} Famotidine Famoti .0 active Famotidi ne eCW3 20 MG Oral dine 2020 {tabl 20 MG ([facility] Tablet 20 MG 12:00: et_at [facility] 00 AM [facility] EDT ime[facility]a Care) s_nee ded} Famotidine Famoti .0 active Famotidi ne eCW3 20 MG Oral dine 2020 {tabl 20 MG ([facility] Tablet 20 MG 12:00: et_at [facility] 00 AM [facility] EDT ime[facility]a Care) s_nee ded} Famotidine Famoti .0 active Famotidi ne eCW3 20 MG Oral dine 2019 {tabl 20 MG ([facility] Tablet 20 MG 12:00: et_at [facility] 00 AM [facility] EDT ime_a Care) s_nee ded} Zolpidem Ambien .0 active Ambien 10 MG eCW3 tartrate 10 10 MG 2019 {tabl ([facility] Oral 12:00: et[facility]at [facility] Tablet 00 AM [facility] [Ambien[facility] EDT ime_a Care) Ambien 10 s_nee MG ded} Zolpidem Ambien .0 active Ambien 10 MG eCW3 tartrate 10 10 MG 2019 {tabl ([facility] Oral 12:00: et_at [facility] Tablet 00 AM [facility] [Ambien] EDT ime_a Care) Ambien 10 s_nee MG ded} Zolpidem Ambien .0 active Ambien 10 MG eCW3 tartrate 10 10 MG 2019 {tabl ([facility] Oral 12:00: et[facility]at [facility] Tablet 00 AM [facility] [Ambien] EDT ime_a Care) Ambien 10 s_nee MG ded} Zolpidem Ambien .0 active Ambien 10 MG eCW3 tartrate 10 10 MG 2019 {tabl ([facility] Oral 12:00: et[facility]at [facility] Tablet 00 AM [facility] [Ambien[facility] EDT ime_a Care) Ambien 10 s_nee MG ded} Zolpidem Ambien .0 active Ambien 10 MG eCW3 tartrate 10 10 MG 2020 {tabl ([facility] Oral 12:00: et[facility]at [facility] Tablet 00 AM [facility] [Ambien] EDT ime_a Care) Ambien 10 s_nee MG ded} Zolpidem Ambien .0 active Ambien 10 MG eCW3 tartrate 10 10 MG 2020 {tabl ([facility] Oral 12:00: et[facility]at [facility] Tablet 00 AM [facility] [Ambien] EDT ime_a Care) Ambien 10 s_nee MG ded} Losartan [facility] .0 active Losartan e CW3 Potassium an 2020 {tabl Potassium ([facility] 100 MG Oral Potass 12:00: et} 100 MG Ri garima Tablet ium 00 AM Health 100 MG EST Care) Losartan [facility] .0 active Losartan e CW3 Potassium an 2020 {tabl Potassium ([facility] 100 MG Oral Potass 12:00: et} 100 MG Ri garima Tablet ium 00 AM Health 100 MG EST Care) Losartan [facility] .0 active Losartan e CW3 Potassium an 2020 {tabl Potassium ([facility] 100 MG Oral Potass 12:00: et} 100 MG Ri garima Tablet ium 00 AM Health 100 MG EST Care) Losartan [facility] .0 active Losartan e CW3 Potassium an 2020 {tabl Potassium ([facility] 100 MG Oral Potass 12:00: et} 100 MG Ri garima Tablet ium 00 AM Health 100 MG EST Care) Losartan [facility] .0 active Losartan e CW3 Potassium an 2020 {tabl Potassium ([facility] 100 MG Oral Potass 12:00: et} 100 MG Ri garima Tablet ium 00 AM Health 100 MG EST Care) Losartan [facility] .0 active Losartan e CW3 Potassium an 2020 {tabl Potassium ([facility] 100 MG Oral Potass 12:00: et} 100 MG Ri garima Tablet ium 00 AM Health 100 MG EST Care) Losartan [facility] .0 active Losartan e CW3 Potassium an 2020 {tabl Potassium ([facility] 100 MG Oral Potass 12:00: et} 100 MG Ri garima Tablet ium 00 AM Health 100 MG EST Care) Losartan [facility] .0 active Losartan e CW3 Potassium an 2020 {tabl Potassium ([facility] 100 MG Oral Potass 12:00: et} 100 MG Ri garima Tablet ium 00 AM Health 100 MG EST Care) Losartan [facility] .0 active Losartan e CW3 Potassium an 2020 {tabl Potassium ([facility] 100 MG Oral Potass 12:00: et} 100 MG Ri garima Tablet ium 00 AM Health 100 MG EST Care) Losartan [facility] .0 active Losartan e CW3 Potassium an 2020 {tabl Potassium ([facility] 100 MG Oral Potass 12:00: et} 100 MG Ri garima Tablet ium 00 AM Health 100 MG EST Care) Losartan [facility] .0 active Losartan e CW3 Potassium an 2020 {tabl Potassium ([facility] 100 MG Oral Potass 12:00: et} 100 MG Ri garima Tablet ium 00 AM Health 100 MG EST Care) Losartan [facility] .0 active Losartan e CW3 Potassium an 2020 {tabl Potassium ([facility] 100 MG Oral Potass 12:00: et} 100 MG Ri garima Tablet ium 00 AM Health 100 MG EST Care) Losartan [facility] .0 active Losartan e CW3 Potassium an 2020 {tabl Potassium ([facility] 100 MG Oral Potass 12:00: et} 100 MG Ri garima Tablet ium 00 AM Health 100 MG EST Care) Losartan [facility] .0 active Losartan e CW3 Potassium an 2020 {tabl Potassium ([facility] 100 MG Oral Potass 12:00: et} 100 MG Ri garima Tablet ium 00 AM Health 100 MG EST Care) Losartan [facility] .0 active Losartan e CW3 Potassium an 2020 {tabl Potassium ([facility] 100 MG Oral Potass 12:00: et} 100 MG Ri garima Tablet ium 00 AM Health 100 MG EST Care) Losartan [facility] .0 active Losartan e CW3 Potassium an 2020 {tabl Potassium ([facility] 100 MG Oral Potass 12:00: et} 100 MG Ri garima Tablet ium 00 AM Health 100 MG EST Care) Losartan [facility] .0 active Losartan e CW3 Potassium an 2020 {tabl Potassium ([facility] 100 MG Oral Potass 12:00: et} 100 MG Ri garima Tablet ium 00 AM Health 100 MG EST Care) Losartan [facility] .0 active Losartan e CW3 Potassium an 2020 {tabl Potassium ([facility] 100 MG Oral Potass 12:00: et} 100 MG Ri garima Tablet ium 00 AM Health 100 MG EST Care) Losartan [facility] .0 active Losartan e CW3 Potassium an 2020 {tabl Potassium ([facility] 100 MG Oral Potass 12:00: et} 100 MG Ri garima Tablet ium 00 AM Health 100 MG EST Care) Losartan [facility] .0 active Losartan e CW3 Potassium an 2020 {tabl Potassium ([facility] 100 MG Oral Potass 12:00: et} 100 MG Ri garima Tablet ium 00 AM Health 100 MG EST Care) Losartan [facility] .0 active Losartan e CW3 Potassium an 2020 {tabl Potassium ([facility] 100 MG Oral Potass 12:00: et} 100 MG Ri garima Tablet ium 00 AM Health 100 MG EST Care) Losartan [facility] .0 active Losartan e CW3 Potassium an 2020 {tabl Potassium ([facility] 100 MG Oral Potass 12:00: et} 100 MG Ri garima Tablet ium 00 AM Health 100 MG EST Care) Losartan [facility] .0 active Losartan e CW3 Potassium an 2020 {tabl Potassium ([facility] 100 MG Oral Potass 12:00: et} 100 MG Ri garima Tablet ium 00 AM Health 100 MG EST Care) Losartan [facility] .0 active Losartan e CW3 Potassium an 2020 {tabl Potassium ([facility] 100 MG Oral Potass 12:00: et} 100 MG Ri garima Tablet ium 00 AM Health 100 MG EST Care) Losartan [facility] .0 active Losartan e CW3 Potassium an 2020 {tabl Potassium ([facility] 100 MG Oral Potass 12:00: et} 100 MG Ri garima Tablet ium 00 AM Health 100 MG EST Care) Hydrochloro Hydroc 11/08/ active Hydroch lorot eCW3 thiazide hlorot 2020 hiazide 12.5 ( [place] 12.5 MG hiazid 12:00: MG [facility] Oral e 12.5 00 AM Health Capsule MG EST Care) Hydrochloro Hydroc 11/08/ active Hydroch lorot eCW3 thiazide hlorot 2020 hiazide 12.5 ( [place] 12.5 MG hiazid 12:00: MG [facility] Oral e 12.5 00 AM Health Capsule MG EST Care) Hydrochloro Hydroc 11/08/ active Hydroch lorot eCW3 thiazide hlorot 2020 hiazide 12.5 ( [place] 12.5 MG hiazid 12:00: MG [facility] Oral e 12.5 00 AM Health Capsule MG EST Care) Hydrochloro Hydroc 11/08/ active Hydroch lorot eCW3 thiazide hlorot 2020 hiazide 12.5 ( [place] 12.5 MG hiazid 12:00: MG [facility] Oral e 12.5 00 AM Health Capsule MG EST Care) Hydrochloro Hydroc 11/08/ active Hydroch lorot eCW3 thiazide hlorot 2020 hiazide 12.5 ( [place] 12.5 MG hiazid 12:00: MG [facility] Oral e 12.5 00 AM Health Capsule MG EST Care) Hydrochloro Hydroc 11/08/ active Hydroch lorot eCW3 thiazide hlorot 2020 hiazide 12.5 ( [place] 12.5 MG hiazid 12:00: MG [facility] Oral e 12.5 00 AM Health Capsule MG EST Care) Hydrochloro Hydroc 11/08/ active Hydroch lorot eCW3 thiazide hlorot 2020 hiazide 12.5 ( [place] 12.5 MG hiazid 12:00: MG [facility] Oral e 12.5 00 AM Health Capsule MG EST Care) Hydrochloro Hydroc 11/08/ active Hydroch lorot eCW3 thiazide hlorot 2020 hiazide 12.5 ( [place] 12.5 MG hiazid 12:00: MG [facility] Oral e 12.5 00 AM Health Capsule MG EST Care) Hydrochloro Hydroc 11/08/ active Hydroch lorot eCW3 thiazide hlorot 2020 hiazide 12.5 ( [place] 12.5 MG hiazid 12:00: MG [facility] Oral e 12.5 00 AM Health Capsule MG EST Care) Hydrochloro Hydroc 11/08/ active Hydroch lorot eCW3 thiazide hlorot 2020 hiazide 12.5 ( [place] 12.5 MG hiazid 12:00: MG [facility] Oral e 12.5 00 AM Health Capsule MG EST Care) Hydrochloro Hydroc 11/08/ active Hydroch lorot eCW3 thiazide hlorot 2020 hiazide 12.5 ( [place] 12.5 MG hiazid 12:00: MG [facility] Oral e 12.5 00 AM Health Capsule MG EST Care) Hydrochloro Hydroc 11/08/ active Hydroch lorot eCW3 thiazide hlorot 2020 hiazide 12.5 ( [place] 12.5 MG hiazid 12:00: MG [facility] Oral e 12.5 00 AM Health Capsule MG EST Care) Hydrochloro Hydroc 11/08/ active Hydroch lorot eCW3 thiazide hlorot 2020 hiazide 12.5 ( [place] 12.5 MG hiazid 12:00: MG [facility] Oral e 12.5 00 AM Health Capsule MG EST Care) Hydrochloro Hydroc 11/08/ active Hydroch lorot eCW3 thiazide hlorot 2020 hiazide 12.5 ( [place] 12.5 MG hiazid 12:00: MG [facility] Oral e 12.5 00 AM Health Capsule MG EST Care) Hydrochloro Hydroc 11/08/ active Hydroch lorot eCW3 thiazide hlorot 2020 hiazide 12.5 ( [place] 12.5 MG hiazid 12:00: MG [facility] Oral e 12.5 00 AM Health Capsule MG EST Care) Hydrochloro Hydroc 11/08/ active Hydroch lorot eCW3 thiazide hlorot 2020 hiazide 12.5 ( [place] 12.5 MG hiazid 12:00: MG [facility] Oral e 12.5 00 AM Health Capsule MG EST Care) Hydrochloro Hydroc 11/08/ active Hydroch lorot eCW3 thiazide hlorot 2020 hiazide 12.5 ( [place] 12.5 MG hiazid 12:00: MG [facility] Oral e 12.5 00 AM Health Capsule MG EST Care) Hydrochloro Hydroc 11/08/ active Hydroch lorot eCW3 thiazide hlorot 2020 hiazide 12.5 ( [place] 12.5 MG hiazid 12:00: MG [facility] Oral e 12.5 00 AM Health Capsule MG EST Care) Hydrochloro Hydroc 11/08/ active Hydroch lorot eCW3 thiazide hlorot 2020 hiazide 12.5 ( [place] 12.5 MG hiazid 12:00: MG [facility] Oral e 12.5 00 AM Health Capsule MG EST Care) Hydrochloro Hydroc 11/08/ active Hydroch lorot eCW3 thiazide hlorot 2020 hiazide 12.5 ( [place] 12.5 MG hiazid 12:00: MG [facility] Oral e 12.5 00 AM Health Capsule MG EST Care) Hydrochloro Hydroc 11/08/ active Hydroch lorot eCW3 thiazide hlorot 2020 hiazide 12.5 ( [place] 12.5 MG hiazid 12:00: MG [facility] Oral e 12.5 00 AM Health Capsule MG EST Care) Hydrochloro Hydroc 11/08/ active Hydroch lorot eCW3 thiazide hlorot 2020 hiazide 12.5 ( [place] 12.5 MG hiazid 12:00: MG [facility] Oral e 12.5 00 AM Health Capsule MG EST Care) Hydrochloro Hydroc 11/08/ active Hydroch lorot eCW3 thiazide hlorot 2019 hiazide 12.5 ( [place] 12.5 MG hiazid 12:00: MG [facility] Oral e 12.5 00 AM Health Capsule MG EST Care) Hydrochloro Hydroc 11/08/ active Hydroch lorot eCW3 thiazide hlorot 2019 hiazide 12.5 ( [place] 12.5 MG hiazid 12:00: MG [place] Oral e 12.5 00 AM Health Capsule MG EST Care) Hydrochloro Hydroc 11/08/ active Hydroch lorot eCW3 thiazide hlorot 2019 hiazide 12.5 ( [place] 12.5 MG hiazid 12:00: MG [facility] Oral e 12.5 00 AM Health Capsule MG EST Care) Calcium Oyster .0 active Oyster Mary l eCW3 Carbonate Shell 2019 {tabl Calcium/D (Hu dson 1250 MG / Calciu 12:00: et} 500-400 Felipa er Cholecalcif m/D 00 AM MG-UNIT [facility] 0.01 500-40 EST Care) MG Oral 0 Tablet MG-UNI Oyster T Shell Calcium/D 500-400 MG-UNIT Calcium Oyster .0 active Oyster Mary l eCW3 Carbonate Shell 2019 {tabl Calcium/D (Hu dson 1250 MG / Calciu 12:00: et} 500-400 Felipa er Cholecalcif m/D 00 AM MG-UNIT [facility] 0.01 500-40 EST Care) MG Oral 0 Tablet MG-UNI Oyster T Shell Calcium/D 500-400 MG-UNIT Oyster Oyster .0 active Oyster Shell eCW3 Shell Shell 2019 {tabl Calcium/D ([facility] Calcium/D Calciu 12:00: et} 500-400 Felipa er 500-400 m/D 00 AM MG-UNIT Health MG-UNIT 500-40 EST Care) 0 MG-UNI T Calcium Oyster .0 active Oyster Mary l eCW3 Carbonate Shell 2019 {tabl Calcium/D (Hu dson 1250 MG / Calciu 12:00: et} 500-400 Fel[place] er Cholecalcif m/D 00 AM MG-UNIT [facility] 0.01 500-40 EST Care) MG Oral 0 Tablet MG-UNI Oyster T Shell Calcium/D 500-400 MG-UNIT Calcium Oyster .0 active Oyster Mary l eCW3 Carbonate Shell 2019 {tabl Calcium/D (Hu dson 1250 MG / Calciu 12:00: et} 500-400 Fel[place] er Cholecalcif m/D 00 AM MG-UNIT [facility] 0.01 500-40 EST Care) MG Oral 0 Tablet MG-UNI Oyster T Shell Calcium/D 500-400 MG-UNIT Calcium Oyster .0 active Oyster Mary l eCW3 Carbonate Shell 2019 {tabl Calcium/D (Hu dson 1250 MG / Calciu 12:00: et} 500-400 [place] er Cholecalcif m/D 00 AM MG-UNIT [facility] 0.01 500-40 EST Care) MG Oral 0 Tablet MG-UNI Oyster T Shell Calcium/D 500-400 MG-UNIT Calcium Oyster .0 active Oyster Mary l eCW3 Carbonate Shell 2019 {tabl Calcium/D (Hu dson 1250 MG / Calciu 12:00: et} 500-400 Fel[place] er Cholecalcif m/D 00 AM MG-UNIT [facility] 0.01 500-40 EST Care) MG Oral 0 Tablet MG-UNI Oyster T Shell Calcium/D 500-400 MG-UNIT Calcium Oyster .0 active Oyster Mary l eCW3 Carbonate Shell 2019 {tabl Calcium/D (Hu dson 1250 MG / Calciu 12:00: et} 500-400 [place] er Cholecalcif m/D 00 AM MG-UNIT [facility] 0.01 500-40 EST Care) MG Oral 0 Tablet MG-UNI Oyster T Shell Calcium/D 500-400 MG-UNIT Calcium Oyster .0 active Oyster Mary l eCW3 Carbonate Shell 2019 {tabl Calcium/D (Hu dson 1250 MG / Calciu 12:00: et} 500-400 Felipa er Cholecalcif m/D 00 AM MG-UNIT [facility] 0.01 500-40 EST Care) MG Oral 0 Tablet MG-UNI Oyster T Shell Calcium/D 500-400 MG-UNIT Oyster Oyster .0 active Oyster Shell eCW3 Shell Shell 2019 {tabl Calcium/D ([facility] Calcium/D Calciu 12:00: et} 500-400 Felipa er 500-400 m/D 00 AM MG-UNIT Health MG-UNIT 500-40 EST Care) 0 MG-UNI T Calcium Oyster .0 active Oyster Mary l eCW3 Carbonate Shell 2019 {tabl Calcium/D (Hu dson 1250 MG / Calciu 12:00: et} 500-400 Felipa er Cholecalcif m/D 00 AM MG-UNIT [facility] 0.01 500-40 EST Care) MG Oral 0 Tablet MG-UNI Oyster T Shell Calcium/D 500-400 MG-UNIT Calcium Oyster .0 active Oyster Mary l eCW3 Carbonate Shell 2019 {tabl Calcium/D (Hu dson 1250 MG / Calciu 12:00: et} 500-400 Felipa er Cholecalcif m/D 00 AM MG-UNIT [facility] 0.01 500-40 EST Care) MG Oral 0 Tablet MG-UNI Oyster T Shell Calcium/D 500-400 MG-UNIT Calcium Oyster .0 active Oyster Mary l eCW3 Carbonate Shell 2019 {tabl Calcium/D (Hu dson 1250 MG / Calciu 12:00: et} 500-400 Felipa er Cholecalcif m/D 00 AM MG-UNIT [facility] 0.01 500-40 EST Care) MG Oral 0 Tablet MG-UNI Oyster T Shell Calcium/D 500-400 MG-UNIT Calcium Oyster .0 active Oyster Mary l eCW3 Carbonate Shell 2019 {tabl Calcium/D (Hu dson 1250 MG / Calciu 12:00: et} 500-400 Fel[place] er Cholecalcif m/D 00 AM MG-UNIT [facility] 0.01 500-40 EST Care) MG Oral 0 Tablet MG-UNI Oyster T Shell Calcium/D 500-400 MG-UNIT Calcium Oyster .0 active Oyster Mary l eCW3 Carbonate Shell 2019 {tabl Calcium/D (Hu dson 1250 MG / Calciu 12:00: et} 500-400 Fel[place] er Cholecalcif m/D 00 AM MG-UNIT [facility] 0.01 500-40 EST Care) MG Oral 0 Tablet MG-UNI Oyster T Shell Calcium/D 500-400 MG-UNIT Calcium Oyster .0 active Oyster Mary l eCW3 Carbonate Shell 2019 {tabl Calcium/D (Hu dson 1250 MG / Calciu 12:00: et} 500-400 [place] er Cholecalcif m/D 00 AM MG-UNIT [facility]al [facility] 0.01 500-40 EST Care) MG Oral 0 Tablet MG-UNI Oyster T Shell Calcium/D 500-400 MG-UNIT Calcium Oyster .0 active Oyster Mary l eCW3 Carbonate Shell 2019 {tabl Calcium/D (Hu dson 1250 MG / Calciu 12:00: et} 500-400 Felip[place] er Cholecalcif m/D 00 AM MG-UNIT [facility] 0.01 500-40 EST Care) MG Oral 0 Tablet MG-UNI Oyster T Shell Calcium/D 500-400 MG-UNIT Calcium Oyster .0 active Oyster Mary l eCW3 Carbonate Shell 2019 {tabl Calcium/D (Hu dson 1250 MG / Calciu 12:00: et} 500-400 Fel[place] er Cholecalcif m/D 00 AM MG-UNIT [facility] 0.01 500-40 EST Care) MG Oral 0 Tablet MG-UNI Oyster T Shell Calcium/D 500-400 MG-UNIT Calcium Oyster .0 active Oyster Mary l eCW3 Carbonate Shell 2019 {tabl Calcium/D (Hu dson 1250 MG / Calciu 12:00: et} 500-400 Felip[place] er Cholecalcif m/D 00 AM MG-UNIT [facility] 0.01 500-40 EST Care) MG Oral 0 Tablet MG-UNI Oyster T Shell Calcium/D 500-400 MG-UNIT Calcium Oyster .0 active Oyster Mary l eCW3 Carbonate Shell 2019 {tabl Calcium/D (Hu dson 1250 MG / Calciu 12:00: et} 500-400 Felip[place] er Cholecalcif m/D 00 AM MG-UNIT [facility] 0.01 500-40 EST Care) MG Oral 0 Tablet MG-UNI Oyster T Shell Calcium/D 500-400 MG-UNIT Calcium Oyster .0 active Oyster Mary l eCW3 Carbonate Shell 2019 {tabl Calcium/D (Hu dson 1250 MG / Calciu 12:00: et} 500-400 Felipa er Cholecalcif m/D 00 AM MG-UNIT [facility] 0.01 500-40 EST Care) MG Oral 0 Tablet MG-UNI Oyster T Shell Calcium/D 500-400 MG-UNIT Oyster Oyster .0 active Oyster Shell eCW3 Shell Shell 2019 {tabl Calcium/D ([facility] Calcium/D Calciu 12:00: et} 500-400 Felipa er 500-400 m/D 00 AM MG-UNIT Health MG-UNIT 500-40 EST Care) 0 MG-UNI T Calcium Oyster .0 active Oyster Mary l eCW3 Carbonate Shell 2019 {tabl Calcium/D (Hu dson 1250 MG / Calciu 12:00: et} 500-400 Felip[place] er Cholecalcif m/D 00 AM MG-UNIT [facility] 0.01 500-40 EST Care) MG Oral 0 Tablet MG-UNI Oyster T Shell Calcium/D 500-400 MG-UNIT Calcium Oyster .0 active Oyster Mary l eCW3 Carbonate Shell 2019 {tabl Calcium/D (Hu dson 1250 MG / Calciu 12:00: et} 500-400 Fel[place] er Cholecalcif m/D 00 AM MG-UNIT [facility] 0.01 500-40 EST Care) MG Oral 0 Tablet MG-UNI Oyster T Shell Calcium/D 500-400 MG-UNIT Calcium Oyster 1.0 active Oyster Mary l eCW3 Carbonate Shell 2019 {tabl Calcium/D (Hu dson 1250 MG / Calciu 12:00: et} 500-400 Fel[place] er Cholecalcif m/D 00 AM MG-UNIT [facility] 0.01 500-40 EST Care) MG Oral 0 Tablet MG-UNI Oyster T Shell Calcium/D 500-400 MG-UNIT Calcium Oyster .0 active Oyster Mary l eCW3 Carbonate Shell 2019 {tabl Calcium/D (Hu dson 1250 MG / Calciu 12:00: et} 500-400 Felipa er Cholecalcif m/D 00 AM MG-UNIT [facility]al [facility] 0.01 500-40 EST Care) MG Oral 0 Tablet MG-UNI Oyster T Shell Calcium/D 500-400 MG-UNIT Calcium Oyster .0 active Oyster Mary l eCW3 Carbonate Shell 2018 {tabl Calcium/D (Hu dson 1250 MG / Calciu 12:00: et} 500-400 Felipa er Cholecalcif m/D 00 AM MG-UNIT [facility]al [facility] 0.01 500-40 EST Care) MG Oral 0 Tablet MG-UNI Oyster T Shell Calcium/D 500-400 MG-UNIT Calcium Oyster .0 active Oyster Mary l eCW3 Carbonate Shell 2018 {tabl Calcium/D (Hu dson 1250 MG / Calciu 12:00: et} 500-400 Felipa er Cholecalcif m/D 00 AM MG-UNIT [facility]al [facility] 0.01 500-40 EST Care) MG Oral 0 Tablet MG-UNI Oyster T Shell Calcium/D 500-400 MG-UNIT Insurance Providers Payer name Policy type Policy ID Covered Covered libertarian's Policy P shahla / Coverage libertarian ID relationship to [employer] Inf ormation type duran -[facility] [id number] SP [id number] [id number] [id number] [employer] Problems, Conditions, and Diagnoses Code Display Name Description Problem Effective Data Type Dates Source(s) B20 Human Human Problem 12/20/2019 eCW3 ([facility] immunodeficiency immunodeficiency 12:00:00 AM [facility] virus infection virus [HIV] disease EDT Care) Z72.89 Alcohol use Alcohol use Problem 07/05/2019 eCW3 ([facility] 12:00:00 AM [facility] EDT Care) Z72.89 Alcohol use Alcohol use Problem 07/05/2019 eCW3 ([facility] 12:00:00 AM [facility] EDT Care) Z72.89 Alcohol use Alcohol use Problem 07/05/2019 eCW3 ([facility] 12:00:00 [facility]) Results ID Date Data Source [id number] 06/12/2020 11:00:00 AM EDT [facility] Name Value Range Interpretation Description Data Sup porting Code Source(s) Document(s ) SARS [facility] coronavirus 2 RNA This lab was ordered by [facility] ct Bill Inter and reported by [facility]. ID Date Data Source [id number] 06/04/2020 12:00:00 AM EDT [facility] Name Value Range Interpretation Code Description Data Lesvia rce(s) Supporting Document(s ) 2019-nCoV [facility] RNA XXX LASHON+probe- Imp [facility] and reported by [facility]. Procedure Social History Code Duration Value Status Description Data Source(s ) Smoking 07/03/2020 12:00:00 Former Smoker completed Former Smoker eCW3 ([facility]) Smoking 07/03/2020 12:00:00 Former Smoker completed Former Smoker eCW3 ([facility]) Smoking 05/20/2020 12:00:00 Former Smoker completed Former Smoker eCW3 ([facility]) Smoking 05/20/2020 12:00:00 Former Smoker completed Former Smoker eCW3 ([facility]) Smoking 05/20/2020 12:00:00 Former Smoker completed Former Smoker eCW3 ([facility]) Smoking 05/20/2020 12:00:00 Former Smoker completed Former Smoker eCW3 ([facility]) Smoking 05/20/2020 12:00:00 Former Smoker completed Former Smoker eCW3 ([facility]) Smoking 05/20/2020 12:00:00 Former Smoker completed Former Smoker eCW3 ([facility]) Smoking 04/03/2020 12:00:00 Former Smoker completed Former Smoker eCW3 ([facility]) Smoking 04/03/2020 12:00:00 Former Smoker completed Former Smoker eCW3 ([facility]) Smoking 04/03/2020 12:00:00 Former Smoker completed Former Smoker eCW3 ([facility]) Smoking 04/03/2020 12:00:00 Former Smoker completed Former Smoker eCW3 ([facility]) Smoking 03/24/2020 12:00:00 Former Smoker completed Former Smoker eCW3 ([facility]) Smoking 03/24/2020 12:00:00 Former Smoker completed Former Smoker eCW3 ([facility]) Smoking 03/24/2020 12:00:00 Former Smoker completed Former Smoker eCW3 ([facility]) Smoking 03/24/2020 12:00:00 Former Smoker completed Former Smoker eCW3 ([facility]) Smoking 01/17/2020 12:00:00 Former Smoker completed Former Smoker eCW3 ([facility]) Smoking 01/17/2020 12:00:00 Former Smoker completed Former Smoker eCW3 ([facility]) Smoking 01/17/2020 12:00:00 Former Smoker completed Former Smoker eCW3 ([facility]) Smoking 01/17/2020 12:00:00 Former Smoker completed Former Smoker eCW3 ([facility]) Smoking 01/17/2020 12:00:00 Former Smoker completed Former Smoker eCW3 ([facility]) Smoking 01/17/2020 12:00:00 Former Smoker completed Former Smoker eCW3 ([facility]) Smoking 01/17/2020 12:00:00 Former Smoker completed Former Smoker eCW3 ([facility]) Smoking 11/23/2019 12:00:00 Former Smoker completed Former Smoker eCW3 ([facility]) Smoking 11/23/2019 12:00:00 Former Smoker completed Former Smoker eCW3 ([facility]) Smoking 08/14/2019 12:00:00 Former Smoker completed Former Smoker eCW3 ([facility]) Smoking 08/14/2019 12:00:00 Former Smoker completed Former Smoker eCW3 ([facility]) Smoking 08/14/2019 12:00:00 Former Smoker completed Former Smoker eCW3 ([facility]) Vital Signs ID Date Data Source UNK Name Value Range Interpretation Code Description Data Source(s) Diastolic blood 87 mm[Hg] 87 mm[Hg] eCW3 ([facility]) Systolic blood 138 mm[Hg] 138 mm[Hg] eCW3 ([facility]) Body temperature 98.0 [degF] 98.0 [degF] eCW3 ( [facility]) Heart rate 16 /min 16 /min eCW3 ([facility]) Body mass index 26.43 kg/m2 26.43 kg/m2 eCW3 ([facility] (BMI) [Ratio] [facility]) Body weight 179 [lb_av] 179 [lb_av] eCW3 ([facility]) Body height [in_i] eCW3 ([facility]) Diastolic blood 91 mm[Hg] 91 mm[Hg] eCW3 ([facility]) Systolic blood 161 mm[Hg] 161 mm[Hg] eCW3 ([facility]) Body temperature 99.6 [degF] 99.6 [degF] eCW3 ( [facility]) Heart rate 18 /min 18 /min eCW3 ([facility]) Body mass index 26.04 kg/m2 26.04 kg/m2 eCW3 ([facility] (BMI) [Ratio] [facility]) Body weight [lb_av] eCW3 ([facility]) Body height [in_i] eCW3 ([facility]) Diastolic blood 87 mm[Hg] 87 mm[Hg] eCW3 ([facility]) Systolic blood 125 mm[Hg] 125 mm[Hg] eCW3 ([facility]) Body temperature 97.8 [degF] 97.8 [degF] eCW3 ( [facility]) Heart rate 18 /min 18 /min eCW3 ([facility]) Body mass index 25.54 kg/m2 25.54 kg/m2 eCW3 ([facility] (BMI) [Ratio] [facility]) Body weight 173 [lb_av] 173 [lb_av] eCW3 ([facility]) Body height [in_i] eCW3 ([facility]) Diastolic blood 97 mm[Hg] 97 mm[Hg] eCW3 ([facility]) Systolic blood 170 mm[Hg] 170 mm[Hg] eCW3 ([facility]) Body temperature 97.7 [degF] 97.7 [degF] eCW3 ( [facility]) Heart rate 16 /min 16 /min eCW3 ([facility]) Body mass index 26.43 kg/m2 26.43 kg/m2 eCW3 ([facility]ma (BMI) [Ratio] [facility]) Body weight 179 [lb_av] 179 [lb_av] eCW3 ([facility]) Body height [in_i] eCW3 ([facility]) Diastolic blood 99 mm[Hg] 99 mm[Hg] eCW3 ([facility]) Systolic blood 142 mm[Hg] 142 mm[Hg] eCW3 ([facility]) Body temperature 97.8 [degF] 97.8 [degF] eCW3 ( [facility]) Heart rate 16 /min 16 /min eCW3 ([facility]) Body mass index 25.84 kg/m2 25.84 kg/m2 eCW3 ([facility] aspneemma (BMI) [Ratio] [facility]) Body weight 175 [lb_av] 175 [lb_av] eCW3 ([facility]) Body height [in_i] eCW3 ([facility]) Patient Treatment Plan of Care Planned Activity Planned Date Details Description Data Source (s) Famotidine 20 MG Oral Tablet 05/20/2020 eCW3 ([facility] 12:00:00 AM [facility]) Famotidine 20 MG Oral Tablet 05/20/2020 eCW3 ([facility] 12:00:00 AM [facility]) Famotidine 20 MG Oral Tablet 05/20/2020 eCW3 ([facility] 12:00:00 AM [facility]) Famotidine 20 MG Oral Tablet 05/20/2020 eCW3 ([facility] 12:00:00 AM [facility]) Famotidine 20 MG Oral Tablet 05/20/2020 eCW3 ([facility] 12:00:00 AM [facility]) Famotidine 20 MG Oral Tablet 05/20/2020 eCW3 ([facility] 12:00:00 AM [facility]) Zolpidem tartrate 10 MG Oral 01/09/2020 eCW3 ([facility] Tablet [Ambien] 12:00:00 AM [facility]) Losartan Potassium 100 MG 11/23/2019 eC W3 ([facility] Oral Tablet 12:00:00 AM [facility]) Losartan Potassium 100 MG 11/23/2019 eC W3 ([facility] Oral Tablet 12:00:00 AM [facility]) Losartan Potassium 100 MG 11/23/2019 eC W3 ([facility] Oral Tablet 12:00:00 AM [facility]) Losartan Potassium 100 MG 11/23/2019 eC W3 ([facility] Oral Tablet 12:00:00 AM [facility]) Losartan Potassium 100 MG 11/23/2019 eC W3 ([facility] Oral Tablet 12:00:00 AM [facility]) Losartan Potassium 100 MG 11/23/2019 eC W3 ([facility] Oral Tablet 12:00:00 AM [facility]) Losartan Potassium 100 MG 11/23/2019 eC W3 ([facility] Oral Tablet 12:00:00 AM [facility]) Hydrochlorothiazide 12.5 MG 11/08/2019 eCW3 ([facility] Oral Capsule 12:00:00 AM [facility]) Hydrochlorothiazide 12.5 MG 11/08/2019 eCW3 ([facility] Oral Capsule 12:00:00 AM [facility]) Hydrochlorothiazide 12.5 MG 11/08/2019 eCW3 ([facility] Oral Capsule 12:00:00 AM [facility]) Hydrochlorothiazide 12.5 MG 11/08/2019 eCW3 ([facility] Oral Capsule 12:00:00 AM [facility]) Hydrochlorothiazide 12.5 MG 11/08/2019 eCW3 ([facility] Oral Capsule 12:00:00 AM [facility]) Hydrochlorothiazide 12.5 MG 11/08/2019 eCW3 ([facility] Oral Capsule 12:00:00 AM [facility]) Hydrochlorothiazide 12.5 MG 11/08/2019 eCW3 ([facility] Oral Capsule 12:00:00 AM [facility]) Calcium Carbonate 1250 MG / 08/14/2019 eCW3 ([facility] Cholecalciferol 0.01 MG Oral 12:00:00 AM [facility]) Tablet Calcium Carbonate 1250 MG / 08/14/2019 eCW3 ([facility] Cholecalciferol 0.01 MG Oral 12:00:00 AM [facility]) Tablet Calcium Carbonate 1250 MG / 08/14/2019 eCW3 ([facility] Cholecalciferol 0.01 MG Oral 12:00:00 AM [facility]) Tablet Calcium Carbonate 1250 MG / 08/14/2019 eCW3 ([facility] Cholecalciferol 0.01 MG Oral 12:00:00 AM [facility]) Tablet Calcium Carbonate 1250 MG / 08/14/2019 eCW3 ([facility] Cholecalciferol 0.01 MG Oral 12:00:00 AM [facility]) Tablet
--- NOTE | 2020-07-17 15:41 | BHS.RME ---
Substance Use & Tx History - Substance Use History Alcohol Substance amount: 1 gallon vodka Frequency of use: Daily Substance route: Oral Date of Last Use: 07/17/20 (started age 20) Cocaine-Crack Substance amount: $100-200 Frequency of use: Daily Substance route: Smoking Date of Last Use: 07/16/20 (started age 32) Nicotine Substance amount: 1/2 pack Frequency of use: Daily Substance route: Smoking Date of Last Use: 07/17/20 (started age 20) - Last Treatment Date of last treatment: 06/12-06/17/20 completed Treatment type: Substance Use Disorder ([facility]) Where was last treatment: Detox Physical/Psych/Mental Status - Behavior General Behavior: Increased activity (restlessness, agitation) Eye Contact: Normal - Cooperativeness Cooperativeness: Cooperative - Thinking Thought Processes: Tight, Logical, Goal Directed - Physical Health Problems Is patient presently having any pain?: No Does patient presently have any injuries (include location): No Does patient currently have a fever: No Is patient : No CIWA Nausea/Vomitin Muscle Tremors: 3 Anxiety: 3 Agitation: 3 Paroxysmal Sweats: 4-Forehead w/Sweat Beads Orientation: 0-Oriented Tacttile Disturbances: 0-None Auditory Disturbances: 0-None Visual Disturbances: 0-None Headache: 0-None Present CIWA-Ar Total Score: 15
--- NOTE | 2020-07-17 16:42 | HP ---
CIWA Score Nausea/Vomitin Muscle Tremors: 3 Anxiety: 3 Agitation: 1-Slight > Activity Paroxysmal Sweats: 4-Forehead w/Sweat Beads Orientation: 0-Oriented Tacttile Disturbances: 1-Very Mild Itch/Numbness Auditory Disturbances: 0-None Visual Disturbances: 0-None Headache: 0-None Present CIWA-Ar Total Score: 14 - Admission Criteria OASAS Guidelines: Admission for Medically Managed Detox: Requires at least one of the followin. CIWA greater than 12 2. Seizures within the past 24 hours 3. Delirium tremens within the past 24 hours 4. Hallucinations within the past 24 hours 5. Acute intervention needed for co occurring medical disorder 6. Acute intervention needed for co occurring psychiatric disorder 7. Severe withdrawal that cannot be handled at a lower level of care (continued vomiting, continued diarrhea, abnormal vital signs) requiring intravenous medication and/or fluids 8. Admitting History and Physical - Admission Chief Complaint: Pt is a 55 yo M presenting for detox from alcohol; "I'm getting the jitters and shakes from staying away from the alcohol." History of Present Illness: Pt is a 55 yo M presenting for detox from alcohol; "I'm getting the jitters and shakes from staying away from the alcohol." Pt was last at [facility] from 06/12- 06/17/2020 completed detox; wanted to complete rehab but had notice for a bill he needed to pay. Pt reports 1 week of sobriety before relapsing. Pt reports recent of his cousins triggered the relapse. Pt reports wanting to complete detox and rehab afterwards. Pt reports recent blackout within the last several days. No seizures. 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; 3 years ago) PSH - none Pscyh - depression (in past), insomnia (reports he is prescribed seroquel, but reports he does not take it because it makes him too drowsy during the day) Soc/Dom - lives alone in apt in [place] Legal - none - Substance Use History Alcohol Substance amount: 1 gallon vodka Frequency of use: Daily Substance route: Oral Date of Last Use: 07/17/20 (started age 20) Cocaine-Crack Substance amount: $100-200 Frequency of use: Daily Substance route: Smoking Date of Last Use: 07/16/20 (started age 32) Nicotine Substance amount: 1/2 pack Frequency of use: Daily Substance route: Smoking Date of Last Use: 07/17/20 (started age 20) - Last Treatment Date of last treatment: 06/12-06/17/20 completed Treatment type: Substance Use Disorder ([facility]) Where was last treatment: Detox History Source: Patient Limitations to Obtaining History: No Limitations - Smoking History Smoking history: Current every day smoker Have you smoked in the past 12 months: Yes Aproximately how many cigarettes per day: 20 - Alcohol/Substance Use Hx Alcohol Use: Yes Admission ROS S - HPI Allergies/Adverse Reactions: Allergies Allergy/AdvReac Type Severity Reaction Status Date / Time fish derived Allergy Severe Swelling Verified 05/27/18 13:53 KAREN Inhibitors Allergy Intermediate Swelling Verified 05/27/18 13:25 - Ebola screening Have you traveled outside of the country in the last 21 days: No Have you been sick,other than usual withdrawal symptoms: No Do you have a fever: No - Review of Systems Constitutional: Diaphoresis (mild sweating on the forehead), Unintentional Wgt. Loss (20-30 lbs (over last several months)) EENT: reports: Blurred Vision (R eye blindness (s/p trauma and glaucoma 3 years ago)) Respiratory: reports: No Symptoms reported Cardiac: reports: No Symptoms Reported GI: reports: Nausea (mild) : reports: No Symptoms Reported Musculoskeletal: reports: No Symptoms Reported Integumentary: reports: No Symptoms Reported Neuro: reports: Numbness (numbness in b/l fingers), Tremors (mild visible tremors) Endocrine: reports: No Symptoms Reported Hematology: reports: No Symptoms Reported Psychiatric: reports: Orientated x3, Agitated (restless), Anxious (mild anxiety) Patient History - Patient Medical History Hx Anemia: No Hx Asthma: Yes Hx Chronic Obstructive Pulmonary Disease (COPD): No Hx Cancer: No Hx Cardiac Disorders: No Hx Congestive Heart Failure: No Hx Hypertension: Yes (LAST TOK MEDS A WEEK AGO. DOES NOT RECALL NAME OF MED) Hx Hypercholesterolemia: No Hx Pacemaker: No HX Cerebrovascular Accident: No Hx Seizures: No Hx Dementia: No Hx Diabetes: No Hx Gastrointestinal Disorders: No Hx Liver Disease: No Hx Genitourinary Disorders: No Hx Sexually Transmitted Disorders: No Hx Renal Disease (ESRD): No Hx Thyroid Disease: No Hx Human Immunodeficiency Virus (HIV): Yes (SINCE 2008, No ANTIRETROVIRAL MEDS) Hx Hepatitis C: No Hx Depression: Yes Hx Suicide Attempt: No Hx Schizophrenia: No - Patient Surgical History Past Surgical History: Yes Hx Neurologic Surgery: No Hx Cataract Extraction: No Hx Cardiac Surgery: No Hx Lung Surgery: No Hx Breast Surgery: No Hx Breast Biopsy: No Hx Abdominal Surgery: No Hx Appendectomy: No Hx Cholecystectomy: No Hx Genitourinary Surgery: No Hx Section: No Hx Orthopedic Surgery: No Other Surgical History: right eye FOR GLAUCOMA Anesthesia Reaction: Yes - PPD History Date: 05/29/18 Results: 0 mm - Smoking Cessation Smoking history: Current every day smoker Have you smoked in the past 12 months: Yes Aproximately how many cigarettes per day: 10 Cigars Per Day: 0 Hx Chewing Tobacco Use: No Initiated information on smoking cessation: Yes 'Breaking Loose' booklet given: 07/17/20 Admission Physical Exam [facility] - Vital Signs Vital Signs: BP 155/103 HR 77 RR 19 T 97/2 O2 sat 98% - Physical General Appearance: Yes: No Apparent Distress, Nourished, Appropriately Dressed, Intoxicated, Tremorous (mild), Sweating (mild), Anxious (mild) HEENTM: Yes: EOMI, Hearing grossly Normal, Normocephalic, Normal Voice, Other (blind in R eye) Respiratory: Yes: Lungs Clear, Normal Breath Sounds, No Respiratory Distress, No Accessory Muscle Use Neck: Yes: Supple, Trachea in good position Breast: Yes: Breast Exam Deferred Cardiology: Yes: Regular Rhythm, Regular Rate Abdominal: Yes: Normal Bowel Sounds, Non Tender, Flat, Soft Genitourinary: Yes: Other (deferred) Back: Yes: Normal Inspection Musculoskeletal: Yes: full range of Motion, Gait Steady Extremities: Yes: Normal Inspection, Normal Range of Motion, Non-Tender, Tremors (mild visible tremor) Neurological: Yes: Fully Oriented, Alert, Motor Strength 5/5, Normal Mood/Affect Integumentary: Yes: Normal Color, Dry, Warm Cleared for Admission [facility] - Detox or Rehab S Level of Care: Medically Managed Detox Regimen/Protocol: Librium Breathalyzer - Breathalyzer Breathalyzer: 0.50 Urine Drug Screen - Test Device Lot number: [id number] Expiration date: 01/15/22 - Control Is test valid?: Yes - Results Drug screen NEGATIVE: No Urine drug screen results: [facility]-Cocaine Inpatient Rehab Admission - Rehab Decision to Admit Inpatient rehab admission?: No
[2020-07-17 16:46] VITALS: BMI 24.7
[2020-07-17] MEDS ORDERED: MAGNESIUM HYDROX 2400MG/30ML ORAL SUSPENSION 30 ML CUP PO PRN (17:08)
[2020-07-17] MEDS ORDERED: MENTHOL/PHENOL 1 EACH UD MM PRN (17:08)
[2020-07-17] MEDS ORDERED: NICOTINE POLACRILEX 2 MG GUM BUC PRN (17:08)
[2020-07-17] MEDS ORDERED: ONDANSETRON *ODT* 4 MG TABLET SL PRN (17:08)
[2020-07-17] MEDS ORDERED: MAG HYDROX/AL HYDROX/SIMETH 30 ML UNIT-DOSE CUP PO PRN (17:08)
[2020-07-17] MEDS ORDERED: METHOCARBAMOL 500 MG TABLET PO PRN (17:08)
[2020-07-17] MEDS ORDERED: IBUPROFEN 400 MG TABLET (FP) PO PRN (17:08)
[2020-07-17] MEDS ORDERED: BISMUTH SUBSALICYLATE 524 MG/30 ML UD PO PRN (17:08)
[2020-07-17] MEDS ORDERED: MAGNESIUM CITRATE 300 ML BOTTLE PO PRN (17:08)
[2020-07-17] MEDS ORDERED: ACETAMINOPHEN 325 MG TABLET (FP) PO PRN ×2 (17:08)
[2020-07-17] MEDS ORDERED: chlordiazePOXIDE HCL 25 MG CAPSULE PO PRN (17:08)
--- OUTSIDE RECORDS SUMMARY | 2020-07-17 17:14 | XMS ---
:1965 Author Organization [facility] Support Name Relationship Address Phone UE Unavailable Unavailable Unavailable JULIÁN KENYON [address] [phone] [place] [address] JULIÁN Kenyon [address] [phone] [place] [address] Re-disclosure Warning The records that you are [...] is protected by Article 27-F of the [facility] Public Health law. If you continue you may haveaccess to information: Regarding HIV / AIDS; Provided by facilities licensed or operated by the [facility] Office of Mental Health; or Provided by the [facility] Office for People With Developmental Disabilities. If such information is present, then the following [facility] mandated warning applies: This information has been [...] law may result in a fine or snf sentence or both. A general authorization for the release of medical or other information is NOT sufficient authorization for further disclosure. Encounters Encounter Providers Location Date Indications Data Source(s ) Outpatient [facility] 08/17/2019 eCW3 ([facility] 12:00:00 AM [facility] - [facility]) 08/17/2019 12:00:00 AM EST Outpatient [facility] 08/14/2019 eCW3 ([facility] 12:00:00 [facility] - [facility]) 08/14/2019 12:00:00 AM EST (CM-F/U) Case [facility] 08/06/2019 eCW3 ([facility] - [facility]) 08/06/2019 12:00:00 AM EDT (CM-F/U) Case [facility] 07/11/2019 eCW3 ([facility] 12[facility]00:[facility] - Care) 07/11/2019 12:00:00 AM EDT Outpatient [facility] 07/05/2019 eCW3 ([facility] 12:00:00 [facility]T - [facility]) 07/05/2019 12:00:00 AM EDT (CM-F/U) Case [facility] 07/05/2019 eCW3 ([facility] 12[facility]00:[facility] - [facility]) 07/05/2019 12:00:00 AM EDT Outpatient [facility] 07/03/2019 eCW3 ([facility] 12:00:00 AM [facility] EDT - [facility]) 07/03/2019 12:00:00 AM EDT (CM-F/U) Case [facility] 07/03/2019 eCW3 ([facility] 12[facility]00:00 [facility] - [facility]) 07/03/2019 12:00:00 AM EDT Outpatient [facility] 06/05/2019 eCW3 ([facility] 12:00:00 AM [facility] EDT - [facility]) 06/05/2019 12:00:00 AM EDT (CM-F/U) Case [facility] 05/31/2019 eCW3 ([facility] 12[facility]00:[facility]) 05/31/2019 12:00:00 AM EDT (CM-F/U) Case [facility] 05/22/2019 eCW3 ([facility] A28 12:00:00 AM [facility] EDT [facility]) 05/22/2019 12:00:00 AM EDT (CM-F/U) Case [facility] 05/22/2019 eCW3 ([facility] A28 12:00:00 AM R [facility] EDT [facility]) 05/22/2019 12:00:00 AM EDT Medications Medication Brand Start Product Dose Route Administrative Pharmacy [facility] Indications Reaction Description Data Name Date Form Instructions Instructions Source(s) Famotidine Famoti .0 active Famotidi ne eCW3 20 MG Oral dine 2020 {tabl 20 MG ([facility] Tablet 20 MG 12:00: et_at [facility] 00 AM [facility] EDT ime_a Care) s_nee ded} Famotidine Famoti .0 active Famotidi ne eCW3 20 MG Oral dine 2020 {tabl 20 MG ([facility] Tablet 20 MG 12:00: et[facility]at [facility] s_nee ded} Famotidine Famoti .0 active Famotidi ne eCW3 20 MG Oral dine 2020 {tabl 20 MG ([facility] Tablet 20 MG 12:00: et_at [facility] 00 AM [facility] Care) s_nee ded} Famotidine Famoti .0 active Famotidi ne eCW3 20 MG Oral dine 2020 {tabl 20 MG ([facility] Tablet 20 MG 12:00: et_at [facility] AM [facility]T im[facility] Care) s_nee ded} Famotidine Famoti .0 active Famotidi ne eCW3 20 MG Oral dine 2020 {tabl 20 MG ([facility] Tablet 20 MG 12:00: et[facility]at [facility]) s_nee ded} Famotidine [...] Care) Ambien 10 s_nee MG ded} Losartan [facility] .0 active Losartan e CW3 Potassium an 2020 {tabl Potassium ([facility] 100 MG Oral Potass 12:00: et} 100 MG Ri garima Tablet ium 00 AM Health 100 MG EST Care) Losartan [facility] .0 active Losartan e CW3 Potassium an 2020 {tabl Potassium ([facility] 100 MG Oral Potass 12:00: et} 100 MG Ri [facility] Tablet ium 00 AM Health 100 MG EST Care) Losartan [facility] .0 active Losartan e CW3 Potassium an 2020 {tabl Potassium ([facility] 100 MG Oral Potass 12:00: et} 100 MG Ri [facility] Tablet ium 00 AM Health 100 MG EST Care) Losartan [facility] .0 active Losartan e CW3 Potassium an 2020 {tabl Potassium ([facility] 100 MG Oral Potass 12:00: et} 100 MG Ri gar[facility] Tablet ium 00 AM Health 100 MG EST Care) Losartan [facility] .0 active Losartan e CW3 Potassium an 2020 {tabl Potassium ([facility] 100 MG Oral Potass 12:00: et} 100 MG Ri gar[facility] Tablet ium 00 AM Health 100 MG EST Care) Losartan [facility] .0 active Losartan e CW3 Potassium an 2020 {tabl Potassium ([facility] 100 MG Oral Potass 12:00: et} 100 MG Ri [facility] Tablet ium 00 AM Health 100 MG EST Care) Losartan [facility] .0 active Losartan e CW3 Potassium an 2020 {tabl Potassium ([facility] 100 MG Oral Potass 12:00: et} 100 MG Ri [facility] Tablet ium 00 AM Health 100 MG EST Care) Losartan [facility] .0 active Losartan e CW3 Potassium an 2020 {tabl Potassium ([facility] 100 MG Oral Potass 12:00: et} 100 MG Ri gar[facility] Tablet ium 00 AM Health 100 MG EST Care) Losartan [facility] .0 active Losartan e CW3 Potassium an 2020 {tabl Potassium ([facility] 100 MG Oral Potass 12:00: et} 100 MG Ri [facility] Tablet ium 00 AM Health 100 MG EST Care) Losartan [facility] .0 active Losartan e CW3 Potassium an 2020 {tabl Potassium ([facility] 100 MG Oral Potass 12:00: et} 100 MG Ri [facility] Tablet ium 00 AM Health 100 MG EST Care) Losartan [facility] .0 active Losartan e CW3 Potassium an 2020 {tabl Potassium ([facility] 100 MG Oral Potass 12:00: et} 100 MG Ri gar[facility] Tablet ium 00 AM Health 100 MG EST Care) Losartan [facility] .0 active Losartan e CW3 Potassium an 2020 {tabl Potassium ([facility] 100 MG Oral Potass 12:00: et} 100 MG Ri garima Tablet ium 00 AM Health 100 MG EST Care) Losartan [facility] .0 active Losartan e CW3 Potassium an 2020 {tabl Potassium ([facility] 100 MG Oral Potass 12:00: et} 100 MG Ri gar[facility] Tablet ium 00 AM Health 100 MG EST Care) [facility]artan [facility] .0 active Losartan e CW3 Potassium an 2020 {tabl Potassium ([facility] 100 MG Oral Potass 12:00: et} 100 MG Ri [facility] Tablet ium 00 AM Health 100 MG EST Care) Losartan [facility] .0 active Losartan e CW3 Potassium an 2020 {tabl Potassium ([facility] 100 MG Oral Potass 12:00: et} 100 MG Ri gar[facility] Tablet ium 00 AM Health 100 MG EST Care) [facility]artan [facility] .0 active Losartan e CW3 Potassium an 2020 {tabl Potassium ([facility] 100 MG Oral Potass 12:00: et} 100 MG Ri gar[facility] Tablet ium 00 AM Health 100 MG EST Care) Losartan [facility] .0 active Losartan e CW3 Potassium an 2020 {tabl Potassium ([facility] 100 MG Oral Potass 12:00: et} 100 MG Ri garima Tablet ium 00 AM Health 100 MG EST Care) Losartan [facility] .0 active Losartan e CW3 Potassium an 2020 {tabl Potassium ([facility] 100 MG Oral Potass 12:00: et} 100 MG Ri garima Tablet ium 00 AM Health 100 MG EST Care) [facility]artan [facility] .0 active Losartan e CW3 Potassium an 2020 {tabl Potassium ([facility] 100 MG Oral Potass 12:00: et} 100 MG Ri garima Tablet ium 00 AM Health 100 MG EST Care) [facility]artan [facility] .0 active Losartan e CW3 Potassium an 2020 {tabl Potassium ([facility] 100 MG Oral Potass 12:00: et} 100 MG Ri garima Tablet ium 00 AM Health 100 MG EST Care) [facility]artan [facility] .0 active Losartan e CW3 Potassium an 2020 {tabl Potassium ([facility] 100 MG Oral Potass 12:00: et} 100 MG Ri garima Tablet ium 00 AM Health 100 MG EST Care) Losartan [facility] .0 active Losartan e CW3 Potassium an 2020 {tabl Potassium ([facility] 100 MG Oral Potass 12:00: et} 100 MG Ri garima Tablet ium 00 AM Health 100 MG EST Care) Losartan [facility] .0 active Losartan e CW3 Potassium an 2020 {tabl Potassium ([facility] 100 MG Oral Potass 12:00: et} 100 MG Ri garima Tablet ium 00 AM Health 100 MG EST Care) Losartan [facility] .0 active Losartan e CW3 Potassium an 2020 {tabl Potassium ([facility] 100 MG Oral Potass 12:00: et} 100 MG Ri garima Tablet ium 00 AM Health 100 MG EST Care) Losartan [facility] .0 active Losartan e CW3 Potassium an 2020 {tabl Potassium ([facility] 100 MG Oral Potass 12:00: et} 100 MG Ri garima Tablet ium 00 AM Health 100 MG EST Care) Hydrochloro Hydroc 11/08/ active Hydroch lorot eCW3 thiazide hlorot 2020 hiazide 12.5 ( [facility] 12.5 MG hiazid 12:00: MG [facility] Oral [...] Felipa er Cholecalcif m/D 00 AM MG-UNIT [facility] david 0.01 500-40 EST Care) MG Oral 0 Tablet MG-UNI Oyster T Shell Calcium/D 500-400 MG-UNIT Calcium Oyster .0 active Oyster Mary l eCW3 Carbonate Shell 2019 {tabl Calcium/D (Hu dson 1250 MG / Calciu 12:00: et} 500-400 [facility] Cholecalcif m/D 00 AM MG-UNIT [facility] david 0.01 500-40 EST Care) MG Oral [...] name Policy type Policy ID Covered Covered democrat's Policy P shahla / Coverage democrat ID relationship to Duran Inf ormation type duran -[facility] [id number] SP [id number] [id number] SP [id number] [facility] Problems, Conditions, and Diagnoses Code Display Name Description Problem Effective Data Type Dates Source(s) B20 Human Human Problem 12/20/2019 eCW3 ([facility] immunodeficiency immunodeficiency 12:00:00 AM [facility] virus infection virus [HIV] disease EDT Care) Z72.89 Alcohol use Alcohol use Problem 07/05/2019 eCW3 ([facility] 12:00:[address] [facility] EDT Care) Z72.89 Alcohol use Alcohol use Problem 07/05/2019 eCW3 ([facility] 12:00:[address] [facility] EDT Care) Z72.89 Alcohol use Alcohol use Problem 07/05/2019 eCW3 ([facility] 12:00:00 [facility]) Results ID Date Data Source [id number] 06/12/2020 11:00:00 AM EDT [facility] Name Value Range Interpretation Description Data Sup porting Code Source(s) Document(s ) SARS [facility] coronavirus 2 RNA This lab was ordered by [facility] ct [facility] and reported by [facility]. ID Date Data Source [id number] 06/04/2020 12:00:00 AM EDT [facility] Name Value Range Interpretation Code Description Data Lesvia rce(s) Supporting Document(s ) 2019-nCoV [facility] RNA XXX LASHON+probe- Imp [facility] and reported by [facility]. Procedure Social History Code Duration Value Status Description Data Source(s ) Smoking 07/03/2020 12:00:00 Former Smoker completed Former Smoker eCW3 ([facility]) Smoking 07/03/2020 12:00:00 Former Smoker completed Former Smoker eCW3 ([facility]) Smoking 05/20/2020 12:00:00 Former Smoker completed Former Smoker eCW3 ([facility]) Smoking 05/20/2020 12:00:00 Former Smoker completed Former Smoker eCW3 ([facility]) Smoking 05/20/2020 12:00:00 Former Smoker completed Former Smoker eCW3 ([facility]) Smoking 05/20/2020 12:00:00 Former Smoker completed Former Smoker eCW3 ([facility]) Smoking 05/20/2020 12:00:00 Former Smoker completed Former Smoker eCW3 ([facility]) Smoking 05/20/2020 12:00:00 Former Smoker completed Former Smoker eCW3 ([facility]) Smoking 04/03/2020 12:00:00 Former Smoker completed Former Smoker eCW3 ([facility]) Smoking 04/03/2020 12:00:00 Former Smoker completed Former Smoker eCW3 ([facility]) Smoking 04/03/2020 12:00:00 Former Smoker completed Former Smoker eCW3 ([facility]) Smoking 04/03/2020 12:00:00 Former Smoker completed Former Smoker eCW3 ([facility]) Smoking 03/24/2020 12:00:00 Former Smoker completed Former Smoker eCW3 ([facility]) Smoking 03/24/2020 12:00:00 Former Smoker completed Former Smoker eCW3 ([facility]) Smoking 03/24/2020 12:00:00 Former Smoker completed Former Smoker eCW3 ([facility]) Smoking 03/24/2020 12:00:00 Former Smoker completed Former Smoker eCW3 ([facility]) Smoking 01/17/2020 12:00:00 Former Smoker completed Former Smoker eCW3 ([facility]) Smoking 01/17/2020 12:00:00 Former Smoker completed Former Smoker eCW3 ([facility]) Smoking 01/17/2020 12:00:00 Former Smoker completed Former Smoker eCW3 ([facility]) Smoking 01/17/2020 12:00:00 Former Smoker completed Former Smoker eCW3 ([facility]) Smoking 01/17/2020 12:00:00 Former Smoker completed Former Smoker eCW3 ([facility]) Smoking 01/17/2020 12:00:00 Former Smoker completed Former Smoker eCW3 ([facility]) Smoking 01/17/2020 12:00:00 Former Smoker completed Former Smoker eCW3 ([facility]) Smoking 11/23/2019 12:00:00 Former Smoker completed Former Smoker eCW3 ([facility]) Smoking 11/23/2019 12:00:00 Former Smoker completed Former Smoker eCW3 ([facility]) Smoking 08/14/2019 12:00:00 Former Smoker completed Former Smoker eCW3 ([facility]) Smoking 08/14/2019 12:00:00 Former Smoker completed Former Smoker eCW3 ([facility]) Smoking 08/14/2019 12:00:00 Former Smoker completed Former Smoker eCW3 ([facility]) Vital Signs ID Date Data Source UNK Name Value Range Interpretation Code Description Data Source(s) Diastolic blood 87 mm[Hg] 87 mm[Hg] eCW3 ([facility]) Systolic blood 138 mm[Hg] 138 mm[Hg] eCW3 ([facility]) Body temperature 98.0 [degF] 98.0 [degF] eCW3 ( [facility]) Heart rate 16 /min 16 /min eCW3 ([facility]) Body mass index 26.43 kg/m2 26.43 kg/m2 eCW3 ([facility] (BMI) [Ratio] [facility]) Body weight 179 [lb_av] 179 [lb_av] eCW3 ([facility]) Body height [in_i] eCW3 ([facility]) Diastolic blood 91 mm[Hg] 91 mm[Hg] eCW3 ([facility]) Systolic blood 161 mm[Hg] 161 mm[Hg] eCW3 ([facility]) Body temperature 99.6 [degF] 99.6 [degF] eCW3 ( [facility]) Heart rate 18 /min 18 /min eCW3 ([facility]) Body mass index 26.04 kg/m2 26.04 kg/m2 eCW3 ([facility] (BMI) [Ratio] [facility]) Body weight [lb_av] eCW3 ([facility]) Body height [in_i] eCW3 ([facility]) Diastolic blood 87 mm[Hg] 87 mm[Hg] eCW3 ([facility]) Systolic blood 125 mm[Hg] 125 mm[Hg] eCW3 ([facility]) Body temperature 97.8 [degF] 97.8 [degF] eCW3 ( [facility]) Heart rate 18 /min 18 /min eCW3 ([facility]) Body mass index 25.54 kg/m2 25.54 kg/m2 eCW3 ([facility] (BMI) [Ratio] [facility]) Body weight 173 [lb_av] 173 [lb_av] eCW3 ([facility]) Body height [in_i] eCW3 ([facility]) Diastolic blood 97 mm[Hg] 97 mm[Hg] eCW3 ([facility]) Systolic blood 170 mm[Hg] 170 mm[Hg] eCW3 ([facility]) Body temperature 97.7 [degF] 97.7 [degF] eCW3 ( [facility]) Heart rate 16 /min 16 /min eCW3 ([facility]) Body mass index 26.43 kg/m2 26.43 kg/m2 eCW3 ([facility] (BMI) [Ratio] [facility]) Body weight 179 [lb_av] 179 [lb_av] eCW3 ([facility]) Body height [in_i] eCW3 ([facility]) Diastolic blood 99 mm[Hg] 99 mm[Hg] eCW3 ([facility]) Systolic blood 142 mm[Hg] 142 mm[Hg] eCW3 ([facility]) Body temperature 97.8 [degF] 97.8 [degF] eCW3 ( [facility]) Heart rate 16 /min 16 /min eCW3 ([facility]) Body mass index 25.84 kg/m2 25.84 kg/m2 eCW3 ([facility]ma (BMI) [Ratio] [facility]) Body weight 175 [lb_av] 175 [lb_av] eCW3 ([facility]) Body height [in_i] eCW3 ([facility]) Patient Treatment Plan of Care Planned Activity Planned Date Details Description Data Source (s) Famotidine 20 MG Oral Tablet 05/20/2020 eCW3 ([facility] 12:00:00 AM [facility]) Famotidine 20 MG Oral Tablet 05/20/2020 eCW3 ([facility] 12:00:00 AM [facility]) Famotidine 20 MG Oral Tablet 05/20/2020 eCW3 ([facility] 12:00:00 AM [facility]) Famotidine 20 MG Oral Tablet 05/20/2020 eCW3 ([facility] 12:00:00 AM [facility]) Famotidine 20 MG Oral Tablet 05/20/2020 eCW3 ([facility] 12:00:00 AM [facility]) Famotidine 20 MG Oral Tablet 05/20/2020 eCW3 ([facility] 12:00:00 AM [facility]) Zolpidem tartrate 10 MG Oral 01/09/2020 eCW3 ([facility] Tablet [Ambien] 12:00:[address] [facility] re) Losartan Potassium 100 MG 11/23/2019 eC W3 ([facility] [place] Oral Tablet 12:00:00 AM [facility]) Losartan Potassium 100 MG 11/23/2019 eC W3 ([facility] Oral Tablet 12:00:00 AM [facility]) Losartan Potassium 100 MG 11/23/2019 eC W3 ([facility] Oral Tablet 12:00:00 AM [facility]) Losartan Potassium 100 MG 11/23/2019 eC W3 ([facility] Oral Tablet 12:00:00 AM [facility]) Losartan Potassium 100 MG 11/23/2019 eC W3 ([facility] Oral Tablet 12:00:00 AM [facility]) Losartan Potassium 100 MG 11/23/2019 eC W3 ([facility] Oral Tablet 12:00:00 AM [facility]) Losartan Potassium 100 MG 11/23/2019 eC W3 ([facility] Oral Tablet 12:00:00 AM [facility]) Hydrochlorothiazide 12.5 MG 11/08/2019 eCW3 ([facility] Oral Capsule 12:00:00 AM [facility]) Hydrochlorothiazide 12.5 MG 11/08/2019 eCW3 ([facility] Oral Capsule 12:00:00 AM [facility]) Hydrochlorothiazide 12.5 MG 11/08/2019 eCW3 ([facility] Oral Capsule 12:00:00 AM [facility]) Hydrochlorothiazide 12.5 MG 11/08/2019 eCW3 ([facility] Oral Capsule 12:00:00 AM [facility]) Hydrochlorothiazide 12.5 MG 11/08/2019 eCW3 ([facility] Oral Capsule 12:00:00 AM [facility]) Hydrochlorothiazide 12.5 MG 11/08/2019 eCW3 ([facility] Oral Capsule 12:00:00 AM [facility]) Hydrochlorothiazide 12.5 MG 11/08/2019 eCW3 ([facility] Oral Capsule 12:00:00 AM [facility]) Calcium Carbonate 1250 MG / 08/14/2019 eCW3 ([facility] Cholecalciferol 0.01 MG Oral 12:00:00 AM [facility]) Tablet Calcium Carbonate 1250 MG / 08/14/2019 eCW3 ([facility] Cholecalciferol 0.01 MG Oral 12:00:00 AM [facility]) Tablet Calcium Carbonate 1250 MG / 08/14/2019 eCW3 ([facility] Cholecalciferol 0.01 MG Oral 12:00:00 AM [facility]) Tablet Calcium Carbonate 1250 MG / 08/14/2019 eCW3 ([facility] Cholecalciferol 0.01 MG Oral 12:00:00 AM [facility]) Tablet Calcium Carbonate 1250 MG / 08/14/2019 eCW3 ([facility] Cholecalciferol 0.01 MG Oral 12:00:00 AM [facility]) Tablet
[2020-07-17] MEDS: chlordiazePOXIDE HCL 25 MG CAPSULE PO SCH ×2 (18:41→22:30)
[2020-07-17] MEDS: NICOTINE 14 MG/24 HOURS TOPICAL PATCH TD SCH (19:07)
[2020-07-17] MEDS: hydrOXYzine PAMOATE 25 MG CAPSULE (FP) PO SCH ×2 (19:07→22:31)
[2020-07-17] MEDS: ALBUTEROL SO4 HFA INHALER IH PRN (21:22)
[2020-07-17] MEDS: THIAMINE HCL 100 MG TABLET (FP) PO SCH (22:30)
[2020-07-17] MEDS: MELATONIN 5 MG TABLETS PO SCH (22:31)
[2020-07-18] MEDS: chlordiazePOXIDE HCL 25 MG CAPSULE PO SCH ×4 (05:08→22:41)
[2020-07-18] MEDS: hydrOXYzine PAMOATE 25 MG CAPSULE (FP) PO SCH ×5 (05:09→22:41)
--- NOTE | 2020-07-18 08:27 | CONSULT ---
[facility] Psychiatric Consult - Data Date of interview: 07/18/20 Admission source: Self-referred Substance Abuse History: Mr Blum is a 55 years old Black male, unemployed receiving SSI, living alone in the [place] seeking detox treatment for alcohol and cocaine Medical History: Significant for bronchial asthma, HIV since 2008, hypertension, blinness right eye and history of right eye surgery for glaucoma. Smokes 10 cigarettes daily Psychiatric History: Patient was approached at bedside for psychiatric interview. Told typewriter repairer:"I don't need to talk to psychiatrist"
[2020-07-18] MEDS: ALBUTEROL SO4 HFA INHALER IH PRN (08:45)
[2020-07-18 10:36] LABS: ALBUMIN 3.1 g/dl (3.4-5.0); BILIRUBIN,TOTAL 0.6 mg/dL (0.2-1); BLOOD UREA NITROGEN 14.5 mg/dL (7-18); CALCIUM 8.5 mg/dL (8.5-10.1); CREATININE 1.3 mg/dL (0.55-1.3); POTASSIUM 3.6 mmol/L (3.5-5.1)
[2020-07-18 10:41] LABS: HEMATOCRIT 36.4 % (35.4-49); HEMOGLOBIN 12.2 GM/dL (11.7-16.9); MCH 31.2 pg (25.7-33.7); MCHC 33.5 g/dl (32.0-35.9); MEAN CELL VOLUME 93.1 fl (80-96); MEAN PLT VOLUME 9.6 fl (7.5-11.1); PLATELET COUNT 157 K/MM3 (134-434); RBC 3.91 M/mm3 (4.00-5.60); RDW 13.3 % (11.9-15.9); WHITE BLOOD COUNT 4.1 K/mm3 (4.0-10.0)
[2020-07-18] MEDS: NICOTINE 14 MG/24 HOURS TOPICAL PATCH TD SCH (11:20)
[2020-07-18] MEDS: NIFEdipine E.R. 30 MG TABLET PO SCH (11:21)
[2020-07-18] MEDS: PRENATAL VITAMINS W/ FOLIC ACID TABLET (FP) PO SCH (11:21)
--- NOTE | 2020-07-18 11:43 | PN ---
[facility] CIWA - CIWA Score Nausea/Vomitin-Mild Nausea/No Vomiting Muscle Tremors: 2 Anxiety: 2 Agitation: 2 Paroxysmal Sweats: No Perspiration Orientation: 0-Oriented Tacttile Disturbances: 1-Very Mild Itch/Numbness Auditory Disturbances: 0-None Visual Disturbances: 0-None Headache: 2-Mild CIWA-Ar Total Score: 10 S Progress Note (SOAP) Subjective: alert,irritable,anxious,interrupted sleep,tremor,aching pain Objective: 07/18/20 13:03 Vital Signs Temperature 98.6 F 07/18/20 08:40 Pulse Rate 77 07/18/20 08:40 Respiratory Rate 16 07/18/20 08:40 Blood Pressure 161/113 H 07/18/20 08:40 O2 Sat by Pulse Oximetry (%) 96 07/18/20 08:40 Laboratory Last Values WBC 4.1 K/mm3 (4.0-10.0) 07/18/20 06:50 RBC 3.91 M/mm3 (4.00-5.60) L 07/18/20 06:50 Hgb 12.2 GM/dL (11.7-16.9) 07/18/20 06:50 Hct 36.4 % (35.4-49) 07/18/20 06:50 MCV 93.1 fl (80-96) 07/18/20 06:50 MCH 31.2 pg (25.7-33.7) 07/18/20 06:50 MCHC 33.5 g/dl (32.0-35.9) 07/18/20 06:50 RDW 13.3 % (11.9-15.9) 07/18/20 06:50 Plt Count 157 K/MM3 (134-434) 07/18/20 06:50 MPV 9.6 fl (7.5-11.1) 07/18/20 06:50 Sodium 142 mmol/L (136-145) 07/18/20 06:50 Potassium 3.6 mmol/L (3.5-5.1) 07/18/20 06:50 Chloride 108 mmol/L (98-107) H 07/18/20 06:50 Carbon Dioxide 30 mmol/L (21-32) 07/18/20 06:50 Anion Gap 4 MMOL/L (8-16) L 07/18/20 06:50 BUN 14.5 mg/dL (7-18) 07/18/20 06:50 Creatinine 1.3 mg/dL (0.55-1.3) 07/18/20 06:50 Est GFR (CKD-EPI)AfAm 72.20 07/18/20 06:50 Est GFR (CKD-EPI)NonAf 62.29 07/18/20 06:50 Random Glucose 82 mg/dL (74-106) 07/18/20 06:50 Calcium 8.5 mg/dL (8.5-10.1) 07/18/20 06:50 Total Bilirubin 0.6 mg/dL (0.2-1) 07/18/20 06:50 AST 28 U/L (15-37) 07/18/20 06:50 ALT 36 U/L (13-61) 07/18/20 06:50 Alkaline Phosphatase 65 U/L (45-117) 07/18/20 06:50 Total Protein 7.0 g/dl (6.4-8.2) 07/18/20 06:50 Albumin 3.1 g/dl (3.4-5.0) L 07/18/20 06:50 Syphilis Serology Non-reactive (NONREACTIVE) 07/18/20 06:50 Assessment: 07/18/20 13:03 withdrawal symptom Plan: continue detox librium regimen,clonidine 0,1 mg po now,close monitoring on bp
[2020-07-18] MEDS ORDERED: cloNIDine HCL 0.1 MG TABLET PO ONE (13:02)
[2020-07-18] MEDS: THIAMINE HCL 100 MG TABLET (FP) PO SCH (22:41)
[2020-07-18] MEDS: MELATONIN 5 MG TABLETS PO SCH (22:41)
[2020-07-19] MEDS: chlordiazePOXIDE HCL 25 MG CAPSULE PO SCH ×3 (06:42→18:17)
[2020-07-19] MEDS: hydrOXYzine PAMOATE 25 MG CAPSULE (FP) PO SCH ×4 (06:43→18:17)
[2020-07-19] MEDS: ALBUTEROL SO4 HFA INHALER IH PRN (07:14)
[2020-07-19] MEDS: PRENATAL VITAMINS W/ FOLIC ACID TABLET (FP) PO SCH (10:14)
[2020-07-19] MEDS: NIFEdipine E.R. 30 MG TABLET PO SCH (10:14)
[2020-07-19] MEDS: NICOTINE 14 MG/24 HOURS TOPICAL PATCH TD SCH (10:14)
--- NOTE | 2020-07-19 12:02 | PN ---
[facility] CIWA - CIWA Score Nausea/Vomitin-No Nausea/No Vomiting Muscle Tremors: 2 Anxiety: 3 Agitation: 2 Paroxysmal Sweats: 2 Orientation: 0-Oriented Tacttile Disturbances: 0-None Auditory Disturbances: 0-None Visual Disturbances: 0-None Headache: 0-None Present CIWA-Ar Total Score: 9 S Progress Note (SOAP) Subjective: Complaints of tremors,anxiety, and sweats. Objective: 07/19/20 12:01 Vital Signs 07/19/20 07/19/20 05:00 08:40 Temperature 97.8 F 97.6 F Pulse Rate 66 81 Respiratory 18 17 Rate Blood Pressure 143/91 118/77 O2 Sat by Pulse 95 Oximetry (%) Laboratory Last Values WBC 4.1 K/mm3 (4.0-10.0) 07/18/20 06:50 RBC 3.91 M/mm3 (4.00-5.60) L 07/18/20 06:50 Hgb 12.2 GM/dL (11.7-16.9) 07/18/20 06:50 Hct 36.4 % (35.4-49) 07/18/20 06:50 MCV 93.1 fl (80-96) 07/18/20 06:50 MCH 31.2 pg (25.7-33.7) 07/18/20 06:50 MCHC 33.5 g/dl (32.0-35.9) 07/18/20 06:50 RDW 13.3 % (11.9-15.9) 07/18/20 06:50 Plt Count 157 K/MM3 (134-434) 07/18/20 06:50 MPV 9.6 fl (7.5-11.1) 07/18/20 06:50 Sodium 142 mmol/L (136-145) 07/18/20 06:50 Potassium 3.6 mmol/L (3.5-5.1) 07/18/20 06:50 Chloride 108 mmol/L (98-107) H 07/18/20 06:50 Carbon Dioxide 30 mmol/L (21-32) 07/18/20 06:50 Anion Gap 4 MMOL/L (8-16) L 07/18/20 06:50 BUN 14.5 mg/dL (7-18) 07/18/20 06:50 Creatinine 1.3 mg/dL (0.55-1.3) 07/18/20 06:50 Est GFR (CKD-EPI)AfAm 72.20 07/18/20 06:50 Est GFR (CKD-EPI)NonAf 62.29 07/18/20 06:50 Random Glucose 82 mg/dL (74-106) 07/18/20 06:50 Calcium 8.5 mg/dL (8.5-10.1) 07/18/20 06:50 Total Bilirubin 0.6 mg/dL (0.2-1) 07/18/20 06:50 AST 28 U/L (15-37) 07/18/20 06:50 ALT 36 U/L (13-61) 07/18/20 06:50 Alkaline Phosphatase 65 U/L (45-117) 07/18/20 06:50 Total Protein 7.0 g/dl (6.4-8.2) 07/18/20 06:50 Albumin 3.1 g/dl (3.4-5.0) L 07/18/20 06:50 Syphilis Serology Non-reactive (NONREACTIVE) 07/18/20 06:50 COVID-19 ([facility]) Not detected (Not Detected) 07/17/20 21:06 Labs noted. Assessment: 07/19/20 12:01 Patient seen and examined, alert and oriented x3, in acute respiratory distress. Full ROM, ambulatory in the unit without assistance. Skin warm to touch without lesions. withdrawal symptoms. Plan: continue detox protocol.
[2020-07-19 18:04] VITALS: BP 125/90; PULSE 84; TEMP 97.1
--- NOTE | 2020-07-19 20:48 | DS ---
[facility] Detox Discharge Summary Admission Date: 07/17/20 Discharge Date: 07/19/20 - History Additional Comments: Patient is leaving against medical advice. He was disruptive, trying to fight other patients and staff, using curse and unprintable words and unable to give his reasons for leaving stating, "I can leave when I want and do what I want". Risks and consequences of his action reinforced. He is alert and oriented x 3, ambulates independently, not in acute distress and vital signs within norm. Patient refused to sign AMA form and was escorted off the floor by security. Pertinent Past History: Alcohol dependence Hypertension Cocaine dependence HIV+ Asthma Nicotine dependence Legally blind in the right eye - Physical Exam Results Vital Signs: Vital Signs Temperature 97.1 F L 07/19/20 16:36 Pulse Rate 84 07/19/20 16:36 Respiratory Rate 18 07/19/20 16:36 Blood Pressure 125/90 07/19/20 16:36 O2 Sat by Pulse Oximetry (%) 95 07/19/20 05:00 Laboratory Last Values WBC 4.1 K/mm3 (4.0-10.0) 07/18/20 06:50 RBC 3.91 M/mm3 (4.00-5.60) L 07/18/20 06:50 Hgb 12.2 GM/dL (11.7-16.9) 07/18/20 06:50 Hct 36.4 % (35.4-49) 07/18/20 06:50 MCV 93.1 fl (80-96) 07/18/20 06:50 MCH 31.2 pg (25.7-33.7) 07/18/20 06:50 MCHC 33.5 g/dl (32.0-35.9) 07/18/20 06:50 RDW 13.3 % (11.9-15.9) 07/18/20 06:50 Plt Count 157 K/MM3 (134-434) 07/18/20 06:50 MPV 9.6 fl (7.5-11.1) 07/18/20 06:50 Sodium 142 mmol/L (136-145) 07/18/20 06:50 Potassium 3.6 mmol/L (3.5-5.1) 07/18/20 06:50 Chloride 108 mmol/L (98-107) H 07/18/20 06:50 Carbon Dioxide 30 mmol/L (21-32) 07/18/20 06:50 Anion Gap 4 MMOL/L (8-16) L 07/18/20 06:50 BUN 14.5 mg/dL (7-18) 07/18/20 06:50 Creatinine 1.3 mg/dL (0.55-1.3) 07/18/20 06:50 Est GFR (CKD-EPI)AfAm 72.20 07/18/20 06:50 Est GFR (CKD-EPI)NonAf 62.29 07/18/20 06:50 Random Glucose 82 mg/dL (74-106) 07/18/20 06:50 Calcium 8.5 mg/dL (8.5-10.1) 07/18/20 06:50 Total Bilirubin 0.6 mg/dL (0.2-1) 07/18/20 06:50 AST 28 U/L (15-37) 07/18/20 06:50 ALT 36 U/L (13-61) 07/18/20 06:50 Alkaline Phosphatase 65 U/L (45-117) 07/18/20 06:50 Total Protein 7.0 g/dl (6.4-8.2) 07/18/20 06:50 Albumin 3.1 g/dl (3.4-5.0) L 07/18/20 06:50 Syphilis Serology Non-reactive (NONREACTIVE) 07/18/20 06:50 COVID-19 ([facility]) Not detected (Not Detected) 07/17/20 21:06 Pertinent Admission Physical Exam Findings: Alcohol withdrawal symptoms - Medication Discharge Medications: Ambulatory Orders Nifedipine ER [Procardia XL -] 30 mg PO DAILY 05/27/18 Quetiapine Fumarate [Seroquel] 100 tab PO HS 05/27/18 - Diagnosis (1) Alcohol dependence with uncomplicated withdrawal Status: Chronic (2) Asthma Status: Chronic Qualifiers: Asthma severity: unspecified severity Asthma persistence: unspecified Asthma complication type: unspecified Qualified Code(s): J45.909 - Unspecified asthma, uncomplicated (3) Cocaine dependence Status: Chronic (4) HTN (hypertension) Status: Chronic Qualifiers: Hypertension type: essential hypertension Qualified Code(s): I10 - Essential (primary) hypertension (5) Human immunodeficiency virus infection Status: Chronic (6) Legally blind in right eye, as defined in [place] Status: Chronic (7) Nicotine dependence Status: Chronic Qualifiers: Nicotine product type: cigarettes Substance use status: uncomplicated Qualified Code(s): F17.210 - Nicotine dependence, cigarettes, uncomplicated - AMA Did Patient Leave Against Medical Advice: Yes
[2020-07-20] MEDS ORDERED: chlordiazePOXIDE HCL 10 MG CAPSULE PO PRN
[2020-07-20] MEDS ORDERED: chlordiazePOXIDE HCL 10 MG CAPSULE PO SCH (05:00)
[2020-07-21] MEDS ORDERED: chlordiazePOXIDE HCL 10 MG CAPSULE PO SCH (05:00)
[2020-07-22] MEDS ORDERED: chlordiazePOXIDE HCL 10 MG CAPSULE PO ONE (05:00)
== END 2020-07-19 20:31 | disposition left against medical advice (07) | DRG 770 ==
LOC: YASAS 14:05 → Y3N 17:09 → Y6N 17:44
PROVIDERS: ADMIT Allergy & Immunology; ATTEND Allergy & Immunology
PROC: HZ2ZZZZ Detoxification Services for Substance Abuse Treatment (ICD-10-PCS; principal; 2020-07-17)
DX: F10.230 Alcohol dependence with withdrawal, uncomplicated (principal); F14.20 Cocaine dependence, uncomplicated; F17.210 Nicotine dependence, cigarettes, uncomplicated; Z21 Asymptomatic human immunodeficiency virus [HIV] infection status; I10 Essential (primary) hypertension; J45.20 Mild intermittent asthma, uncomplicated; H54.61 Unqualified visual loss, right eye, normal vision left eye; Z86.69 Personal history of other diseases of the nervous system and sense organs; Z98.890 Other specified postprocedural states; Z88.8 Allergy status to other drugs, medicaments and biological substances; Z91.013 Allergy to seafood; Z91.018 Allergy to other foods
CPT/HCPCS: 36415; 80053; 85027; 86780; C9803; J0735; U0003

== ENCOUNTER 2021-09-16 15:51 | Inpatient (IN) | payer OTHER ==
[2021-09-16] MEDS ORDERED: MAG HYDROX/AL HYDROX/SIMETH 30 ML UNIT-DOSE CUP PO PRN (17:35)
[2021-09-16] MEDS ORDERED: BISMUTH SUBSALICYLATE 524 MG/30 ML PO PRN (17:35)
[2021-09-16] MEDS ORDERED: MAGNESIUM CITRATE 300 ML BOTTLE PO PRN (17:35)
[2021-09-16] MEDS ORDERED: MAGNESIUM HYDROX 2400MG/30ML ORAL SUSPENSION 30 ML CUP PO PRN (17:35)
[2021-09-16] MEDS ORDERED: METHOCARBAMOL 500 MG TABLET PO PRN (17:35)
[2021-09-16] MEDS ORDERED: ACETAMINOPHEN 325 MG TABLET (FP) PO PRN ×2 (17:35)
[2021-09-16] MEDS ORDERED: MENTHOL/PHENOL 1 EACH UD MM PRN (17:35)
[2021-09-16] MEDS ORDERED: chlordiazePOXIDE HCL 25 MG CAPSULE PO PRN (17:35)
[2021-09-16] MEDS ORDERED: NICOTINE 10 MG CARTRIDGE (INHALER) IH PRN (17:35)
[2021-09-16] MEDS ORDERED: ONDANSETRON *ODT* 4 MG TABLET SL PRN (17:35)
[2021-09-16] MEDS ORDERED: IBUPROFEN 400 MG TABLET (FP) PO PRN (17:35)
[2021-09-16 19:07] VITALS: BMI 25.8
[2021-09-16] MEDS: hydrOXYzine PAMOATE 25 MG CAPSULE (FP) PO SCH ×2 (20:00→23:56)
[2021-09-16] MEDS ORDERED: MELATONIN 5 MG TABLETS PO SCH (22:00)
[2021-09-16] MEDS: chlordiazePOXIDE HCL 25 MG CAPSULE PO SCH (23:17)
[2021-09-16] MEDS: THIAMINE HCL 100 MG TABLET (FP) PO SCH (23:17)
[2021-09-17] MEDS: hydrOXYzine PAMOATE 25 MG CAPSULE (FP) PO SCH ×5 (06:49→23:44)
[2021-09-17] MEDS: chlordiazePOXIDE HCL 25 MG CAPSULE PO SCH ×4 (06:49→22:37)
[2021-09-17] MEDS: NICOTINE 14 MG/24 HOURS TOPICAL PATCH TD SCH (11:22)
[2021-09-17] MEDS: PRENATAL VITAMINS W/ FOLIC ACID TABLET (FP) PO SCH (11:22)
[2021-09-17] MEDS: NIFEdipine E.R. 30 MG TABLET PO SCH (11:23)
[2021-09-17 13:15] LABS: HEMATOCRIT 38.4 % (35.4-49); HEMOGLOBIN 13.1 GM/dL (11.7-16.9); MCH 31.8 pg (25.7-33.7); MEAN CELL VOLUME 93.4 fl (80-96); MEAN PLT VOLUME 9.5 fl (7.5-11.1); PLATELET COUNT 184 10^3/uL (134-434); RBC 4.11 M/mm3 (4.00-5.60); RDW 12.2 % (11.9-15.9); WHITE BLOOD COUNT 4.9 K/mm3 (4.0-10.0)
[2021-09-17 13:23] LABS: BLOOD UREA NITROGEN 14.7 mg/dL (7-18)
[2021-09-17 13:27] LABS: CREATININE 1.7 mg/dL (0.55-1.3)
[2021-09-17 13:28] LABS: BILIRUBIN,TOTAL 0.8 mg/dL (0.2-1); TOT PROT 6.8 g/dl (6.4-8.2)
[2021-09-17 13:29] LABS: CALCIUM 8.8 mg/dL (8.5-10.1)
[2021-09-17] MEDS ORDERED: QUEtiapine FUMARATE 50 MG TABLET PO SCH (22:00)
[2021-09-17] MEDS: THIAMINE HCL 100 MG TABLET (FP) PO SCH (22:36)
[2021-09-18] MEDS: hydrOXYzine PAMOATE 25 MG CAPSULE (FP) PO SCH ×2 (05:37→11:15)
[2021-09-18] MEDS: chlordiazePOXIDE HCL 25 MG CAPSULE PO SCH ×2 (05:37→11:15)
[2021-09-18 06:48] VITALS: PULSE 65
[2021-09-18 09:09] VITALS: BP 140/89; TEMP 97.6
[2021-09-18] MEDS: NICOTINE 14 MG/24 HOURS TOPICAL PATCH TD SCH (11:15)
[2021-09-18] MEDS: NIFEdipine E.R. 30 MG TABLET PO SCH (11:15)
[2021-09-18] MEDS: PRENATAL VITAMINS W/ FOLIC ACID TABLET (FP) PO SCH (11:15)
[2021-09-19] MEDS ORDERED: chlordiazePOXIDE HCL 10 MG CAPSULE PO PRN
[2021-09-19] MEDS ORDERED: chlordiazePOXIDE HCL 10 MG CAPSULE PO SCH (05:00)
[2021-09-20] MEDS ORDERED: chlordiazePOXIDE HCL 10 MG CAPSULE PO SCH (05:00)
[2021-09-21] MEDS ORDERED: chlordiazePOXIDE HCL 10 MG CAPSULE PO ONE (05:00)
== END 2021-09-18 11:32 | disposition left against medical advice (07) | DRG 770 ==
LOC: YASAS 15:51 → Y6N 18:29
PROVIDERS: ADMIT Allergy & Immunology; ATTEND Allergy & Immunology
PROC: HZ2ZZZZ Detoxification Services for Substance Abuse Treatment (ICD-10-PCS; principal; 2021-09-16)
DX: F10.230 Alcohol dependence with withdrawal, uncomplicated (principal); F14.20 Cocaine dependence, uncomplicated; F17.210 Nicotine dependence, cigarettes, uncomplicated; F19.24 Other psychoactive substance dependence with psychoactive substance-induced mood disorder; F19.282 Other psychoactive substance dependence with psychoactive substance-induced sleep disorder; I10 Essential (primary) hypertension; Z21 Asymptomatic human immunodeficiency virus [HIV] infection status; H54.40 Blindness, one eye, unspecified eye; J45.909 Unspecified asthma, uncomplicated; G62.9 Polyneuropathy, unspecified; Z91.013 Allergy to seafood; Z88.8 Allergy status to other drugs, medicaments and biological substances
CPT/HCPCS: 36415; 80053; 85027; 86780; C9803; U0003; U0005

== ENCOUNTER 2024-02-11 10:44 | Inpatient (IN) | payer OTHER ==
[2024-02-11 11:19] VITALS: BMI 27.4
[2024-02-11] MEDS ORDERED: IBUPROFEN 600 MG TABLET (FP) PO PRN (13:28)
[2024-02-11] MEDS ORDERED: chlordiazePOXIDE HCL 25 MG CAPSULE PO PRN (13:28)
[2024-02-11] MEDS ORDERED: ACETAMINOPHEN 325 MG TABLET (FP) PO PRN (13:28)
[2024-02-11] MEDS ORDERED: POLYETHYLENE GLYCOL (HEALTHYLAX) 3350 17 GM PACKET PO PRN (13:28)
[2024-02-11] MEDS ORDERED: BENZONATATE 200 MG CAPSULE PO PRN (13:28)
[2024-02-11] MEDS ORDERED: NALOXONE HCL 0.4 MG/ML VIAL IM PRN (13:28)
[2024-02-11] MEDS ORDERED: MAGNESIUM HYDROX 2400MG/30ML ORAL SUSPENSION 30 ML CUP PO PRN (13:28)
[2024-02-11] MEDS ORDERED: ONDANSETRON *ODT* 4 MG TABLET SL PRN (13:28)
[2024-02-11] MEDS ORDERED: MAG HYDROX/AL HYDROX/SIMETH 30 ML UNIT-DOSE CUP PO PRN (13:28)
[2024-02-11] MEDS ORDERED: IBUPROFEN 400 MG TABLET (FP) PO PRN (13:28)
[2024-02-11] MEDS ORDERED: BENZOCAINE/MENTHOL (CHLORASEPTIC ) LOZENGE MM PRN (13:28)
[2024-02-11] MEDS ORDERED: guaiFENesin 600 MG TABLET.ER (FP) PO PRN (13:28)
[2024-02-11] MEDS ORDERED: METHOCARBAMOL 500 MG TABLET PO PRN (13:28)
[2024-02-11] MEDS ORDERED: BISMUTH SUBSALICYLATE 524 MG/30 ML PO PRN (13:28)
[2024-02-11] MEDS ORDERED: LOPERAMIDE HCL 2 MG CAPSULE PO PRN (13:28)
[2024-02-11] MEDS ORDERED: NALOXONE HCL (KLOXXADO) 8 MG SPRAY NS PRN (13:28)
[2024-02-11] MEDS: chlordiazePOXIDE HCL 25 MG CAPSULE PO SCH (17:12)
[2024-02-11] MEDS: THIAMINE 100 MG TABLET PO SCH (22:33)
[2024-02-11] MEDS: BUDESONIDE/FORMETEROL FUMARATE 160/4.5 mcg INHALER IH SCH (22:40)
[2024-02-11] MEDS: MELATONIN 5 MG TABLETS PO SCH (22:40)
[2024-02-12] MEDS: amLODIPine BESYLATE 10 MG TABLET (FP) PO SCH (10:45)
[2024-02-12] MEDS: PATIENT'S OWN MEDICATION (NON-FORMULARY) (Bictegrav/Emtricit/Tenofov Ala [Biktarvy 50-200- PO SCH (10:48)
[2024-02-12] MEDS: NICOTINE 21 MG/24 HOURS TOPICAL PATCH TD SCH (10:49)
[2024-02-12] MEDS: PRENATAL VITAMINS W/ FOLIC ACID TABLET (FP) PO SCH (10:50)
[2024-02-12] MEDS: DORZOLAMIDE 2% HCL OPHTHALMIC SOLUTION 10 ML BOTTLE OU SCH (10:50)
[2024-02-12] MEDS: PATIENT'S OWN MEDICATION (NON-FORMULARY) (Brimonidine Tartrate/Timolol [Combigan 0.2%-0.5% OU SCH (10:51)
[2024-02-12] MEDS: PATIENT'S OWN MEDICATION (NON-FORMULARY) (Losartan Potassium [Cozaar] 100 MG Tablet) PO SCH (10:51)
[2024-02-12 10:55] LABS: HEMATOCRIT 39.5 % (35.4-49); HEMOGLOBIN 13.3 GM/dL (11.7-16.9); MCH 31.2 pg (25.7-33.7); MCHC 33.6 g/dl (32.0-35.9); MEAN CELL VOLUME 93.1 fl (80-96); MEAN PLT VOLUME 9.6 fl (7.5-11.1); PLATELET COUNT 166 10^3/uL (134-434); RBC 4.25 M/mm3 (4.00-5.60); RDW 13.1 % (11.9-15.9); WHITE BLOOD COUNT 4.7 K/mm3 (4.0-10.0)
[2024-02-12 11:14] LABS: CHLORIDE 108 mmol/L (98-107); POTASSIUM 3.9 mmol/L (3.5-5.1); SODIUM 140 mmol/L (136-145)
[2024-02-12 11:17] LABS: ALBUMIN 3.1 g/dl (3.4-5.0); GLUCOSE,RANDOM 82 mg/dL (74-106)
[2024-02-12 11:19] LABS: ANION GAP 5 mmol/L (4-13); CALCIUM 8.7 mg/dL (8.5-10.1); CO2 27 mmol/L (21-32)
[2024-02-12 11:20] LABS: CREATININE 1.3 mg/dL (0.55-1.3); SGOT/AST 19 U/L (15-37); SGPT/ALT 26 U/L (13-61)
[2024-02-12 11:21] LABS: BILIRUBIN,TOTAL 0.5 mg/dL (0.2-1); TOT PROT 6.5 g/dl (6.4-8.2)
[2024-02-12 11:22] LABS: ALK PHOS 76 U/L (45-117)
[2024-02-12] MEDS: ALBUTEROL SO4 HFA INHALER IH PRN (17:20)
[2024-02-13] MEDS: chlordiazePOXIDE HCL 25 MG CAPSULE PO SCH (05:07)
[2024-02-13] MEDS: LACTULOSE 20 GM/30 ML UDC (FOR ORAL USE ONLY) PO SCH (17:39)
[2024-02-13] MEDS: cloNIDine HCL 0.1 MG TABLET PO PRN (17:39)
[2024-02-14] MEDS ORDERED: chlordiazePOXIDE HCL 10 MG CAPSULE PO PRN
[2024-02-14] MEDS: chlordiazePOXIDE HCL 10 MG CAPSULE PO SCH (05:45)
[2024-02-14] MEDS: hydrOXYzine PAMOATE 25 MG CAPSULE (FP) PO PRN (22:01)
[2024-02-15] MEDS: chlordiazePOXIDE HCL 10 MG CAPSULE PO SCH (05:35)
[2024-02-15] MEDS: DICYCLOMINE HCL 10 MG CAPSULE PO PRN (17:39)
[2024-02-16] MEDS: chlordiazePOXIDE HCL 10 MG CAPSULE PO ONE (05:45)
[2024-02-16] MEDS: BICTEGRAV/EMTRICIT/TENOFOV (BIKTARVY) 50-200-25 MG TABLET PO SCH (08:25)
[2024-02-16 09:17] VITALS: BP 132/76; PULSE 69; RESP 18; TEMP 97.8
== END 2024-02-16 09:20 | disposition home or self-care (01) | DRG 774 ==
LOC: YASAS 10:44 → Y6N 13:23
PROVIDERS: ADMIT Allergy & Immunology; ATTEND Surgery
PROC: HZ2ZZZZ Detoxification Services for Substance Abuse Treatment (ICD-10-PCS; principal; 2024-02-11)
DX: F10.230 Alcohol dependence with withdrawal, uncomplicated (principal); F14.20 Cocaine dependence, uncomplicated; F17.210 Nicotine dependence, cigarettes, uncomplicated; Z21 Asymptomatic human immunodeficiency virus [HIV] infection status; G62.9 Polyneuropathy, unspecified; H54.61 Unqualified visual loss, right eye, normal vision left eye; I10 Essential (primary) hypertension; J45.909 Unspecified asthma, uncomplicated; R79.89 Other specified abnormal findings of blood chemistry; Z99.89 Dependence on other enabling machines and devices
CPT/HCPCS: 36415; 80053; 80305; 80307; 82140; 85027; 86780; 93005; 93010